=== PATIENT | male | born 1930 | race African-American/Black ===

== ENCOUNTER 2018-02-15 16:00 | Emergency (ER) | payer OTHER ==
[2018-02-15 16:30] VITALS: BP 137/112; PULSE 84; TEMP 98.3; BMI 27.7
--- NOTE | 2018-02-15 18:04 | PDOC ---
History of Present Illness <Nieves Nolan - Last Filed: 02/15/18 18:04> - General History Source: Patient Exam Limitations: No Limitations - History of Present Illness Initial Comments: 02/15/18 19:55 The patient is a 87 year old male, with a significant past medical history of HTN and BPH, who presents to the emergency department with, 2-3 weeks of a wound to the right side of his back. He notes his wound began to have purulent discharge approximately 2 days ago prompting him to call his PCP who advised him to report to the ED for drainage by Dr. Ledbetter. He denies any recent fevers, chills, headache or dizziness. He denies any recent nausea, vomit, diarrhea or constipation. He denies any recent chest pain or shortness of breath. He denies any recent dysuria, frequency, urgency or hematuria. Allergies: NKA Past surgical history: None reported. Social History: Nonsmoker. Denies EtOH use and recreational drug use. Primary Care Physician: Dr. Grullon <Jarvis Castillo - Last Filed: 02/15/18 20:04> - General Chief Complaint: Wound Stated Complaint: PCP SENT/SWELLING/MASS Time Seen by Provider: 02/15/18 18:04 Past History - Past Medical History Anemia: No Asthma: No Cancer: No Cardiac Disorders: No CVA: No COPD: No CHF: No Dementia: No Diabetes: No GI Disorders: No Disorders: Yes (INCONTINENT) HTN: Yes Hypercholesterolemia: No Liver Disease: No Seizures: No Thyroid Disease: No - Surgical History Abdominal Surgery: Yes (bowel obstruction,hernia) Orthopedic Surgery: Yes (Bilateral Knee REPLACEMENTS) - Suicide/Smoking/Psychosocial Hx Smoking Status: Yes Smoking History: Former smoker Have you smoked in the past 12 months: No Number of Cigarettes Smoked Daily: 5 Information on smoking cessation initiated: No 'Breaking Loose' booklet given: 07/21/14 Hx Alcohol Use: No Drug/Substance Use Hx: No Substance Use Type: Alcohol Hx Substance Use Treatment: No <Nieves Nolan - Last Filed: 02/15/18 18:04> <Jarvis Castillo - Last Filed: 02/15/18 20:04> - Past Medical History Allergies/Adverse Reactions: Allergies Allergy/AdvReac Type Severity Reaction Status Date / Time No Known Drug Allergies Allergy Verified 07/24/14 08:28 MESH Allergy Severe PAIN, FEVER Uncoded 07/24/14 08:28 Home Medications: Ambulatory Orders Tolterodine Tartrate [Detrol LA] 4 mg PO DAILY #0 cap.er.24h 11/04/12 Verapamil HCl [Verapamil Sr] 240 mg PO DAILY #0 cap24h.pel 11/04/12 oxyCODONE HCL [Roxicodone -] 5 mg PO Q6H #20 tablet 07/24/14 Sulfamethoxazole/Trimethoprim [Bactrim Ds -] 1 tab PO BID #14 tablet 02/15/18 Review of Systems - Review of Systems Able to Perform ROS?: Yes Comments:: 02/15/18 19:55 GENERAL/CONSTITUTIONAL: No fever or chills. No weakness. HEAD, EYES, EARS, NOSE AND THROAT: No change in vision. No ear pain or discharge. No sore throat. CARDIOVASCULAR: No chest pain or shortness of breath. RESPIRATORY: No cough, wheezing, or hemoptysis. GASTROINTESTINAL: No nausea, vomiting, diarrhea or constipation. GENITOURINARY: No dysuria, frequency, or change in urination. MUSCULOSKELETAL: No joint or muscle swelling or pain. No neck or back pain. +SKIN: Abscess to the right side of the lower/mid back. NEUROLOGIC: No headache, vertigo, loss of consciousness, or change in strength/ sensation. ENDOCRINE: No increased thirst. No abnormal weight change. HEMATOLOGIC/LYMPHATIC: No anemia, easy bleeding, or history of blood clots. ALLERGIC/IMMUNOLOGIC: No hives or skin allergy. All Other Systems: Reviewed and Negative <Jarvis Castillo - Last Filed: 02/15/18 20:04> *Physical Exam - Vital Signs Last Vital Signs Temp Pulse Resp BP Pulse Ox 98.3 F 84 16 137/112 H 96 02/15/18 16:25 02/15/18 16:25 02/15/18 16:25 02/15/18 16:25 02/15/18 16:25 <Nieves Nolan - Last Filed: 02/15/18 18:04> - Vital Signs Last Vital Signs Temp Pulse Resp BP Pulse Ox 98.3 F 84 16 137/112 H 96 02/15/18 16:25 02/15/18 16:25 02/15/18 16:25 02/15/18 16:25 02/15/18 16:25 <Jarvis Castillo - Last Filed: 02/15/18 20:04> Moderate Sedation - Procedure Monitoring Vital Signs: Procedure Monitoring Vital Signs Temperature 98.3 F 02/15/18 16:25 Pulse Rate 84 02/15/18 16:25 Respiratory Rate 16 02/15/18 16:25 Blood Pressure 137/112 H 02/15/18 16:25 O2 Sat by Pulse Oximetry (%) 96 02/15/18 16:25 <Nieves Nolan - Last Filed: 02/15/18 18:04> - Procedure Monitoring Vital Signs: Procedure Monitoring Vital Signs Temperature 98.3 F 02/15/18 16:25 Pulse Rate 84 02/15/18 16:25 Respiratory Rate 16 02/15/18 16:25 Blood Pressure 137/112 H 02/15/18 16:25 O2 Sat by Pulse Oximetry (%) 96 02/15/18 16:25 <Jarvis Castillo - Last Filed: 02/15/18 20:04> *DC/Admit/Observation/Transfer <Nieves Nolan - Last Filed: 02/15/18 18:04> - Attestations Scribe Attestion: 02/15/18 19:55 Documentation prepared by Jarvis Castillo, acting as chief medical physicist for Nieves Nolan MD. <Jarvis Castillo - Last Filed: 02/15/18 20:04> - Discharge Dispostion Condition at time of disposition: Stable - Prescriptions Prescriptions: Sulfamethoxazole/Trimethoprim [Bactrim Ds -] 1 tab PO BID #14 tablet - Referrals Referrals: Shay Grullon MD [Primary Care Provider] - - Patient Instructions - Post Discharge Activity
[2018-02-15] MEDS ORDERED: LIDOCAINE HCL 1%, 10 MG/ML (50 mL VIAL) INF ONE (18:13)
[2018-02-15] MEDS ORDERED: LIDOCAINE 1%/EPI 1:100000 (20 ML MULTI DOSE VIAL) INF ONE (18:32)
[2018-02-15] MEDS ORDERED: LIDOCAINE 1%/EPI 1:100000 (20 ML MULTI DOSE VIAL) ONE (18:39)
[2018-02-15] MEDS ORDERED: ACETAMINOPHEN WITH CODEINE 300MG/30MG TABLET PO ONE ×2 (19:57→20:01)
[2018-02-15] MEDS ORDERED: SULFAMETHOXAZOLE/TRIMETHOPRIM 800MG/160MG D.S. TABLET PO ONE (19:57)
--- NOTE | 2018-02-15 20:02 | PDOC ---
*Physical Exam - Vital Signs Last Vital Signs Temp Pulse Resp BP Pulse Ox 98.3 F 84 16 137/112 H 96 02/15/18 16:25 02/15/18 16:25 02/15/18 16:25 02/15/18 16:25 02/15/18 16:25 Medical Decision Making - Medical Decision Making 02/15/18 20:[address] Nolan. Patient is an 87 yo male w/ pmh HTN and BPH who presents for evaluation of 2-3 week right back wound/swelling. Patient evaluated by surgery who drained and sent wound culture. Suggested Bactrim BS BID for 1 week with tylenol 3 for pain control. Will comply with recommendations. No need for further workup at this time. Discharging to home for further outpatient follow-up. *DC/Admit/Observation/Transfer Diagnosis at time of Disposition: Abscess of lower back, Ruptured epidermal cyst, Back pain due to inflammatory process Hypertension Qualifiers: Hypertension type: essential hypertension Qualified Code(s): I10 - Essential ( primary) hypertension - Discharge Dispostion Disposition: HOME Condition at time of disposition: Improved - Prescriptions Prescriptions: Acetaminophen W/ Codeine #3 [Tylenol # 3 -] 1 tab PO TID PRN #15 tablet MDD 3 tabs PRN Reason: Pain Sulfamethoxazole/Trimethoprim [Bactrim Ds -] 1 tab PO BID #14 tablet - Referrals Referrals: Shay Grullon MD [Primary Care Provider] - Red Ledbetter MD [Staff Physician] - 02/17/18 (CALL for appointment ) - Patient Instructions Printed Discharge Instructions: DI for Incision and Drainage of a Skin Abscess Additional Instructions: Postoperative instructions: You had incision and drainage of a right lower back abscess on 02/15/[address] Red Ledbetter of [facility]. Activity/Wound Care: Resume your usual activities gradually. Do not remove dressing until seen in surgical clinic Thursday. You will need to start daily wound care on at home, and a visiting nurse may be arranged to come help you with that. The wound dressing should be removed , and the packing taken out and replaced after cleansing. If a nurse is present, they should do the first dressing change at home. After that, you may coordinate timing such that you may shower daily starting then with the dressing OFF and OUT. Soap and water is okay on the wound, but you may need slightly cooler water than usual to minimize pain. After your shower, just pat the wound area dry, and have the nurse or your son repack the wound with ribbon gauze (1" or 1/2" iodoform or plain packing), cover with gauze and secure with tape to keep it until the next day. No bath or swimming until skin incisions have healed. Pain/Meds: For pain, you may use and alternate [id number] Tylenol ( acetaminophen) 1-2 pills and/or Ibuprofen 200 mg (1-3 pills) every 6 hours each as needed; this means that you can take one OR the other at 3-hour intervals. If you are prescribed a Tylenol/narcotic combination for severe pain, use it instead of plain Tylenol as needed and switch back when your pain starts decreasing. Do not take more than 4000 mg of acetaminophen in a day. Take medications as prescribed or indicated on the labeling. You are also prescribed antibiotics for a week - Bactrim twice daily for seven days. Take all of the antibiotics, even if you are feeling much better. Follow-up: Call Dr. Ledbetter's office at [phone] to make your postop appointment (Thursday this , 02/17/18). Clinic is held in the [facility] on the first floor of [facility]. Call the office if you have: * increasing pain not responsive to pain medication * fever of 101F or higher * vomiting * unusual or increasing bleeding or drainage from wounds * increasing redness or swelling at wound sites Also, see your primary medical doctor, Dr. Grullon, next week again. - Post Discharge Activity
--- NOTE | 2018-02-15 20:10 | CONSULT ---
Consult Consult Specialty:: General Surgery Referred by:: Dr. Cristian Grullon/ER Reason for Consultation:: back abscess - History of Present Illness Chief Complaint: right lower back lump, swelling, pain, drainage History of Present Illness: 87yoM with HTN, incontinence, multiple surgical hx, no diabetes was seen in Dr. Grullon's office today with c/o right lower back lump for about a month or so, now larger, with increased pain, and drainage - has been red on his sheets and clothing. He denies associated symptoms, and only told his son about it today. He is seen in the ER, sent from PCP, for surgical evaluation and drainage. He is seen with his son, in ER, alert and cooperative. There is staining on his shirt and sweatshirt from the site, which is not dressed. He notes pain in the area, but has not taken anything specifically for it recently. - History Source History Provided By: Patient Limitations to Obtaining History: No Limitations - Past Medical History Cardio/Vascular: Yes: HTN Renal/: Yes: Other (incontinence) Musculoskeletal: Yes: Osteoarthritis Rheumatology: Yes: Rheumatoid Arthritis - Past Surgical History Past Surgical History: Yes: Colostomy (with reversal), Hernia Repair (abdominal) , Joint Replacement (knee) Additional Surgical History: surgery for bowel obstruction, colostomy and reversal - Alcohol/Substance Use Hx Alcohol Use: Yes (social/occasional) History of Substance Use: reports: None - Smoking History Smoking history: Current every day smoker Have you smoked in the past 12 months: Yes Aproximately how many cigarettes per day: 7 (1pk/3 days) - Social History Usual Living Arrangement: With Child Occupation: retired Home Medications - Allergies Allergies/Adverse Reactions: Allergies Allergy/AdvReac Type Severity Reaction Status Date / Time No Known Drug Allergies Allergy Verified 07/24/14 08:28 MESH Allergy Severe PAIN, FEVER Uncoded 07/24/14 08:28 - Home Medications Home Medications: Ambulatory Orders Tolterodine Tartrate [Detrol LA] 4 mg PO DAILY #0 cap.er.24h 11/04/12 Verapamil HCl [Verapamil Sr] 240 mg PO DAILY #0 cap24h.pel 11/04/12 oxyCODONE HCL [Roxicodone -] 5 mg PO Q6H #20 tablet 07/24/14 Acetaminophen W/ Codeine #3 [Tylenol # 3 -] 1 tab PO TID PRN #15 tablet MDD 3 tabs 02/15/18 Sulfamethoxazole/Trimethoprim [Bactrim Ds -] 1 tab PO BID #14 tablet 02/15/18 Family Disease History - Family Disease History Family History: Unremarkable (noncontributory) Review of Systems - Review of Systems Constitutional: denies: Chills, Fever Eyes: reports: Other (wears glasses). denies: Recent Change in Vision HENT: reports: Hearing Loss. denies: Difficult Swallowing, Throat Pain Neck: denies: Swollen Glands, Tenderness Cardiovascular: denies: Chest Pain, Palpitations Respiratory: denies: Cough, SOB Gastrointestinal: denies: Abdominal Pain, Nausea, Vomiting Genitourinary: reports: Incontinence. denies: Dysuria Musculoskeletal: reports: Back Pain (with hpi), Other (joint deformities ( arthritis)) Integumentary: reports: Lump (with hpi), Wound (with hpi) Neurological: reports: Unsteady Gait (walks with cane). denies: Dizziness, Headache Physical Exam Vital Signs: Vital Signs Temperature 98.3 F 02/15/18 16:25 Pulse Rate 84 02/15/18 16:25 Respiratory Rate 16 02/15/18 16:25 Blood Pressure 137/112 H 02/15/18 16:25 O2 Sat by Pulse Oximetry (%) 96 02/15/18 16:25 Constitutional: Yes: Well Nourished, No Distress, Calm Eyes: Yes: Conjunctiva Clear, EOM Intact, Other (glasses) HENT: Yes: Atraumatic, Normocephalic, Other (poor dentition) Neck: Yes: Supple, Trachea Midline Cardiovascular: Yes: Regular Rate and Rhythm Respiratory: Yes: Regular, CTA Bilaterally Gastrointestinal: Yes: Normal Bowel Sounds, Soft, Hernia (incisional, reducible) , Other (healed scars). No: Tenderness ...Rectal Exam: Yes: Deferred Renal/: No: CVA Tenderness - Left, CVA Tenderness - Right Musculoskeletal: Yes: Joint Stiffness. No: Joint Swelling Extremities: Yes: Deformity (hands with arthritic deformities). No: Cool, Cyanosis Edema: No Peripheral Pulses WNL: Yes Integumentary: Yes: Other (right lower back lump (see below) and smaller, mobile soft midline subcutaneous mass feels compatible with lipoma, nontender). No: Jaundice, Rash Wound/Incision: Yes: Open to air, Draining (purulence expressible), Other ( right lower back with 5-6cm diameter raised (~3cm), slightly firm, tender lump, with ulcerated center (yellow and pink), with purulence expressible, small punctum just to right of ulcerated area). No: Reddened (no sig local erythema) Neurological: Yes: Alert, Oriented Psychiatric: Yes: Alert, Oriented Problem List - Problems (1) Abscess of lower back Assessment/Plan: likely ruptured epidermal cyst - needs drainage Discussed with patient risks, benefits and alternatives of incision and drainage of back abscess, including but not limited to bleeding, infection; alternatives include antibiotics and no surgery - risks of this include progression of infection, need for more extensive procedure, sepsis, . Patient agreeable to procedure under local anesthesia in ER. See separate procedure note for details. I&D performed in ED wound packed with 1" iodoform - remaining supplies given to pt's son, who observed technique for packing pain meds to be given by ED Bactrim x 1 week, first dose now ok for diet dressing to be left alone until he sees me to f/u in surgical clinic Thursday, call for appt will need CM/SW to arrange VNS to start for daily wound care - packing changes with 1/2" iodoform or plain packing daily starting pt's son will be able to help on days nurse cannot be there, but could use education/reinforcement and someone to follow wound he will be able to shower with dressing off/out, once can be coordinated with VNS after first dressing change also should f/u with Dr. Grullon next week instructions in d/c plan Code(s): L02.212 - CUTANEOUS ABSCESS OF BACK [ANY PART, EXCEPT BUTTOCK] (2) Ruptured epidermal cyst Code(s): L72.0 - EPIDERMAL CYST (3) Back pain due to inflammatory process Code(s): M54.89 - OTHER DORSALGIA (4) Hypertension Code(s): I10 - ESSENTIAL (PRIMARY) HYPERTENSION Qualifiers: Hypertension type: essential hypertension Qualified Code(s): I10 - Essential (primary) hypertension
[2018-02-15] MEDS ORDERED: SULFAMETHOXAZOLE/TRIMETHOPRIM 800MG/160MG D.S. TABLET ONE (20:23)
[2018-02-15] MEDS ORDERED: ACETAMINOPHEN WITH CODEINE 300MG/30MG TABLET ONE (20:23)
--- NOTE | 2018-02-15 20:37 | PROC ---
Incision and Drainage Indication/Location: right lower back abscess Risks and Benefits Explained: Yes Consent on Chart: No (verbal consent obtained) Betadine cleansed: Yes Anesthesia: 1% Lidocaine w/ Epi (27ml) Blade Size: 10 Drainage: purulent and cheesy content, bloody Irrigated with Normal Saline: No (irrigated with local anesthetic) Iodinated Packin in Sterile Dressing Applied: Yes - Remarks Remarks: 20ml 1% lido + epi used to infiltrate around and under affected area ~2.5cm diameter disc of skin removed to include ulcerated area and punctum additional 7ml local infiltrated into skin edges with excision for pain culture taken upon initial access to pus ruptured cyst with cheesy content noted, as much of cyst wall as could be found was excised small bleeder in wound base cauterized with silver nitrate wound ~2cm deep at end of procedure, edges slightly undermined, R>L irrigated with local wiped out with gauze cavity packed with 1" iodoform ribbon covered with gauze and tape pt tolerated well son observed for packing technique
== END 2018-02-15 21:26 | disposition home or self-care (01) ==
LOC: JER 16:00
PROC: 0H96XZZ Drainage of Back Skin, External Approach (ICD-10-PCS; principal; 2018-02-15)
DX: L02.212 Cutaneous abscess of back [any part, except buttock and flank] (principal); L72.0 Epidermal cyst; M54.9 Dorsalgia, unspecified; I10 Essential (primary) hypertension
CPT/HCPCS: 87070; 87077; 87205; 99281-25

== ENCOUNTER 2018-10-12 09:31 | Inpatient (IN) | payer OTHER ==
--- NOTE | 2018-10-12 10:07 | PDOC ---
Attending Attestation - Resident Resident Name: Nohemi Swift - ED Attending Attestation I have performed the following: I have examined & evaluated the patient, The case was reviewed & discussed with the resident, I agree w/resident's findings & plan, Exceptions are as noted - HPI HPI: 10/12/18 09:59 88y M hx of htn, bph presents with complaint of leg waekness - states that the past few days, he has felt more unsteady than usual. He is usually able to ambulate on his own, but has felt a bit more unsteady than usual. Pt does have a hx of bph and chronic intermittent urinary incontinence (possibly overflow) Pt endorses some mild b/l knee pain. denies any fever/chills, cough, sob, dean, cp, dysuria, back pain, numnbess/tingling/weakness, diarrhea, melena, bpr. pt denies recent falls/trauma. pt denies any current pain PMD: Dr. Grullon - Physicial Exam PE: 10/12/18 10:23 GENERAL: The patient is awake, alert, and fully oriented, Nontoxic - in no acute distress. HEAD: Normocephalic, atraumatic. EYES: extraocular movements intact, sclera anicteric, conjunctiva clear. ENT: Normal voice, Moist mucous membranes. NECK: Normal range of motion, supple LUNGS: Breath sounds equal, clear to auscultation bilaterally. No wheezes, no rhonchi, no rales. HEART: Regular rate and rhythm, normal S1 and S2 without murmur, rub or gallop. ABDOMEN: Soft, nontender, No guarding, no rebound. No CVA tenderness EXTREMITIES: Normal range of motion, no edema. NEUROLOGICAL: No facial assymetry, Normal speech, strength 5/5 in upper/lower extremities at shoulder/elbow/wrist/hip/knee flex/ext PSYCH: Normal mood, normal affect. SKIN: Warm, Dry, normal turgor, lipoma on mid back/midline that is nonfluctuant , non erythemadous, nontender, non indurated - Medical Decision Making 10/12/18 10:25 general weakness - ddx - anemia, metabolic derangement, occut infection will ck ekg, cbc, cmp, trop, ua will reassess if neg, anticipate dc after abmulation 10/12/18 13:45 pts labs reviewed cr noted slightly elevated, possible prerenal pts trop noted at .12 - may be due to renal clearance. will recheck the pts trop low suspicionf or acs as pt denies any anginal equivalents 10/12/18 16:45 p;ts repeat trop was at .13 - will admit for further management and trend trops no cp currently Heart Score/ECG Review - ECG Impressions Comment:: 10/12/18 10:57 Twelve-lead EKG was performed and reviewed by me. There is normal sinus rhythm with a ragte of 78 1st degree av block PVCs present LAD LVH abnormal r wave pgoression
--- NOTE | 2018-10-12 10:10 | PDOC ---
History of Present Illness - General Chief Complaint: Pain Stated Complaint: SICK Time Seen by Provider: 10/12/18 09:39 - History of Present Illness Initial Comments: 10/12/18 10:13 88y/o M hx of HTN,BPH and bilateral knee replacements presenting with 2 days of sudden bilateral leg weakness. At baseline, he is able to walk around albeit slowly around his home and has some tremors. He has been unable to bear his weight and feels the weakness primarily in his knees. Though able to walk, patient spends a lot of time bed bound on a daily basis.He denies any pain, numbness, falls, trauma, fevers, chills, sick contacts. Past History - Past Medical History Allergies/Adverse Reactions: Allergies Allergy/AdvReac Type Severity Reaction Status Date / Time No Known Drug Allergies Allergy Verified 10/12/18 11:06 MESH Allergy Severe PAIN, FEVER Uncoded 10/12/18 11:06 Home Medications: Ambulatory Orders Tolterodine Tartrate [Detrol LA] 4 mg PO DAILY #0 cap.er.24h 11/04/12 Verapamil HCl [Verapamil Sr] 240 mg PO DAILY #0 cap24h.pel 11/04/12 Anemia: No Asthma: No Cancer: No Cardiac Disorders: No CVA: No COPD: No CHF: No Dementia: No Diabetes: No GI Disorders: No Disorders: Yes (INCONTINENT) HTN: Yes Hypercholesterolemia: No Liver Disease: No Seizures: No Thyroid Disease: No - Surgical History Abdominal Surgery: Yes (bowel obstruction,hernia) Orthopedic Surgery: Yes (Bilateral Knee REPLACEMENTS) - Suicide/Smoking/Psychosocial Hx Smoking Status: Yes Smoking History: Current every day smoker Have you smoked in the past 12 months: Yes Number of Cigarettes Smoked Daily: 4 Information on smoking cessation initiated: No 'Breaking Loose' booklet given: 07/21/14 Hx Alcohol Use: No Drug/Substance Use Hx: No Substance Use Type: Alcohol Hx Substance Use Treatment: No Review of Systems - Review of Systems Constitutional: No: Chills, Fever HEENTM: No: Blurred Vision, Ear Pain Respiratory: No: Cough, Shortness of Breath Cardiac (ROS): No: Chest Pain ABD/GI: No: Abd. Pain w/ defecation : Yes: Incontinence. No: Burning, Dysuria Musculoskeletal: No: Back Pain, Joint Pain Integumentary: No: Bruising, Change in Color Neurological: No: Headache, Numbness *Physical Exam - Vital Signs Last Vital Signs Temp Pulse Resp BP Pulse Ox 99.1 F 79 18 155/88 96 10/12/18 09:34 10/12/18 09:34 10/12/18 09:34 10/12/18 09:34 10/12/18 09:34 - Physical Exam General Appearance: Yes: Appropriately Dressed. No: Apparent Distress HEENT: positive: Normal Voice Neck: positive: Supple. negative: Decreased range of motion Respiratory/Chest: positive: Lungs Clear, Normal Breath Sounds. negative: Chest Tender, Respiratory Distress Cardiovascular: positive: Regular Rhythm, Regular Rate, S1, S2. negative: Edema , JVD Vascular Pulses: Dorsalis-Pedis (R): 2+, Doralis-Pedis (L): 2+ Gastrointestinal/Abdominal: positive: Normal Bowel Sounds, Soft, Protuberent. negative: Guarding, Rebound Musculoskeletal: positive: Normal Inspection, Other (lipoma located in the midback). negative: CVA Tenderness Extremity: positive: Normal Capillary Refill, Normal Inspection, Normal Range of Motion, Other (5/5 strength bilateral lower extremities. full range of motion. scar on both knees from surgery). negative: Tender Integumentary: positive: Normal Color, Dry, Warm Neurologic: positive: Fully Oriented, Alert, Normal Mood/Affect, Normal Response , Motor Strength 5/5 ED Treatment Course - LABORATORY CBC & Chemistry Diagram: 10/14/18 05:24 10/14/18 05:24 Medical Decision Making - Medical Decision Making 10/12/18 10:56 88y/o M hx of HTN,BPH and bilateral knee replacements presenting with 2 days of sudden bilateral leg weakness. Labs/Imaging/Meds cbc,cmp,ua,ekg, troponin Ekg: Sinus rhythm with first degree AV block, possible left atrial enlargement, ,left axis deviation,LVH, T wave abnormality, inferior infarct, Bladder scan: 45 cc of urine. white count 9.8 BUN/Cr 24.4/1.7 10/12/18 12:16 Pt.unable to pee at this time. Is resisting the idea of getting a straight cath for urine collection. Benefits of getting testing have been explained to the patient. Pt given more water to drink and will attempt collection again. 09/03/19 15:06 Pt was able to urinate Urine + for UTI. given one dose of cephalexin PO 500mg Trop elevated 0.12 and 0.13 3 hrs later. Pt will be admitted for observation Microblog sent for admission *DC/Admit/Observation/Transfer Diagnosis at time of Disposition: Elevated troponin, Leg weakness, bilateral - Referrals - Patient Instructions - Post Discharge Activity
[2018-10-12 11:16] LABS: BASO % 0.3 % (0-2.0); EOS % 0.1 % (0-4.5); HEMOGLOBIN 14.1 GM/dL (11.7-16.9); LYMPH % 3.2 % (8-40); MCH 30.5 pg (25.7-33.7); MCHC 34.3 g/dl (32.0-35.9); MEAN CELL VOLUME 89.1 fl (80-96); MEAN PLT VOLUME 9.7 fl (7.5-11.1); MONO % 9.2 % (3.8-10.2); NEUT % 87.2 % (42.8-82.8); PLATELET COUNT 151 K/MM3 (134-434); RDW 13.3 % (11.9-15.9); WHITE BLOOD COUNT 9.8 K/mm3 (4.0-10.0)
[2018-10-12 11:48] LABS: BILIRUBIN,TOTAL 2.2 mg/dL (0.2-1); BLOOD UREA NITROGEN 24.4 mg/dL (7-18); CALCIUM 8.6 mg/dL (8.5-10.1); CREATININE 1.7 mg/dL (0.55-1.3); POTASSIUM 3.4 mmol/L (3.5-5.1); TOT PROT 6.5 g/dl (6.4-8.2)
--- NOTE | 2018-10-12 12:41 | EKG ---
Test Reason : Blood Pressure : / mmHG Vent. 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
[2018-10-12 13:06] LABS: EPI CELLS 1.6 /HPF (0-5/HPF); HYALINE CASTS 33 /lpf (0-8); URINE APPEARANCE CLOUDY; URINE BACTERIA 101.6 /hpf (NEGATIVE); URINE BILIRUBIN 1+ (NEGATIVE); URINE COLOR DK YELLOW; URINE GLUCOSE (UA) NEGATIVE (NEGATIVE); URINE KETONE NEGATIVE (NEGATIVE); URINE LEUK ESTERASE 1+ (NEGATIVE); URINE NITRITE POSITIVE (NEGATIVE); URINE PROTEIN 2+ (NEGATIVE); URINE RBC 1 /hpf (0-4); URINE WBC 28 /hpf (0-5)
[2018-10-12] MEDS ORDERED: CEPHALEXIN MONOHYDRATE 500 MG CAPSULE (UD) PO ONE (13:12)
[2018-10-12] MEDS ORDERED: CEPHALEXIN MONOHYDRATE 500 MG CAPSULE (UD) ONE (13:21)
--- NOTE | 2018-10-12 17:47 | HP ---
Admitting History and Physical - Admission Chief Complaint: increased weakness History of Present Illness: Patient is an 88 year old male with a significant past medical history of hypertension, BPH, rheumatoid arthritis, hypertension and bilateral knee replacements. He presents to the ED with c/o of two days of increases weakness , lethargy and with inability to suddenly ambulate secondary to increased weakness. At baseline, he is able to walk around slowly around his home and has some tremors. He has been unable to bear his weight and feels the weakness primarily in his knees.He denies any pain, numbness, falls, trauma, fevers, chills, sick contacts. In the ED he was noted to have hypertensive urgency, JEANNIE, elevated troponins and also found to have uti. He is being admitted for cardiac workup. History Source: Patient, Family Member Limitations to Obtaining History: Intoxication, Physical Impairment, Poor Historian - Past Medical History Cardiovascular: Yes: HTN Pulmonary: Yes: Other Renal/: Yes: Other (incontinence) Musculoskeletal: Yes: Osteoarthritis Rheumatology: Yes: Rheumatoid Arthritis - Past Surgical History Past Surgical History: Yes: Colostomy (with reversal), Hernia Repair (abdominal) , Joint Replacement (knee) - Smoking History Smoking history: Current every day smoker Have you smoked in the past 12 months: Yes Aproximately how many cigarettes per day: 4 - Alcohol/Substance Use Hx Alcohol Use: No History of Substance Use: reports: None - Social History Usual Living Arrangement: Yes: With Spouse ADL: Family Assistance Occupation: retired History of Recent Travel: No Home Medications - Allergies Allergies/Adverse Reactions: Allergies Allergy/AdvReac Type Severity Reaction Status Date / Time No Known Drug Allergies Allergy Verified 10/12/18 11:06 MESH Allergy Severe PAIN, FEVER Uncoded 10/12/18 11:06 - Home Medications Home Medications: Ambulatory Orders Tolterodine Tartrate [Detrol LA] 4 mg PO DAILY #0 cap.er.24h 11/04/12 Verapamil HCl [Verapamil Sr] 240 mg PO DAILY #0 cap24h.pel 11/04/12 Family Disease History - Family Disease History Family History: Unable to Obtain Review of Systems - Review of Systems Constitutional: reports: No Symptoms, Lethargy, Loss of Appetite, Malaise, Weakness Eyes: reports: Other HENT: reports: No Symptoms Neck: reports: No Symptoms Cardiovascular: reports: Other Respiratory: reports: Exercise Intolerance Gastrointestinal: reports: No Symptoms Musculoskeletal: reports: Decreased ROM, Muscle Weakness Integumentary: reports: No Symptoms Neurological: reports: No Symptoms Endocrine: reports: No Symptoms Hematology/Lymphatic: reports: No Symptoms Psychiatric: reports: No Symptoms Physical Examination Vital Signs: Vital Signs Temperature 99.0 F 10/12/18 15:15 Pulse Rate 70 10/12/18 15:15 Respiratory Rate 18 10/12/18 09:34 Blood Pressure 189/95 H 10/12/18 15:15 O2 Sat by Pulse Oximetry (%) 97 10/12/18 15:15 Constitutional: Yes: Well Nourished, Calm Eyes: Yes: WNL HENT: Yes: Atraumatic Neck: Yes: WNL Cardiovascular: Yes: Regular Rate and Rhythm Respiratory: Yes: CTA Bilaterally Gastrointestinal: Yes: WNL ...Rectal Exam: Yes: Deferred Renal/: Yes: WNL Peripheral Pulses WNL: No Integumentary: Yes: WNL Wound/Incision: Yes: Clean/Dry Neurological: Yes: Alert, Oriented ...Motor Strength: WNL Psychiatric: Yes: Alert, Oriented Labs: CBC, BMP 10/12/18 11:05 10/12/18 11:05 Imaging - Results Chest X-ray: Report Reviewed Problem List - Problems (1) Weakness Assessment/Plan: will initiate physical therapy if weakness persists may need further imaging Code(s): R53.1 - WEAKNESS (2) Elevated troponin Assessment/Plan: rule out acs trops elevated, ekg shows nsr 78, 1st degree av block, pvcs lad, lvh and abnormal wave progression given lovenox 90mg x 1 at 7pm today, will await cardiology recommendations for anticoagulation trend troponins echo in a.m. Code(s): R74.8 - ABNORMAL LEVELS OF OTHER SERUM ENZYMES (3) Hypertensive urgency Assessment/Plan: on verapramil 240mg. did not take his cardiac medications today. unclear if patient is complaint with cardiac medications for echo. monitor bp q 4, may need further uptitration of medications will check lipid panel and a1c o further assess risk factors Code(s): I16.0 - HYPERTENSIVE URGENCY (4) ACS (acute coronary syndrome) Code(s): I24.9 - ACUTE ISCHEMIC HEART DISEASE, UNSPECIFIED (5) Urinary tract infection Assessment/Plan: given keflex in the Ed. will start on ceftriaxone, pending urine culture Code(s): N39.0 - URINARY TRACT INFECTION, SITE NOT SPECIFIED (6) Prophylactic measure Assessment/Plan: fen gentle hydration monitor electrolytes low salt diet prophy [facility] [place] Code(s): Z29.9 - ENCOUNTER FOR PROPHYLACTIC MEASURES, UNSPECIFIED Visit type - Emergency Visit Emergency Visit: Yes ED Registration Date: 10/12/18 Care time: The patient presented to the Emergency Department on the above date and was hospitalized for further evaluation of their emergent condition. - New Patient This patient is new to me today: Yes Date on this admission: 10/13/18 - Critical Care Critical Care patient: No
[2018-10-12] MEDS ORDERED: VERAPAMIL HCL 240 MG E.R. TABLET PO ONE (18:43)
[2018-10-12] MEDS ORDERED: VERAPAMIL HCL 120 MG TABLET PO STA (18:43)
[2018-10-12] MEDS ORDERED: ACETAMINOPHEN 325 MG TABLET (FP) PO PRN (18:44)
[2018-10-12] MEDS ORDERED: ENOXAPARIN NA (PORCINE) 100 MG/1 ML DISP.SYRIN SQ ONE ×2 (19:39→20:08)
[2018-10-12] MEDS ORDERED: ASPIRIN COATED 81 MG TABLET.EC ONE (20:08)
[2018-10-12] MEDS: ASPIRIN COATED 81 MG TABLET.EC PO SCH (20:19)
[2018-10-12] MEDS: SODIUM CHLORIDE 1,000 ML IV SCH (20:37)
[2018-10-12] MEDS ORDERED: ACETAMINOPHEN 325 MG TABLET (FP) ONE (21:57)
[2018-10-13 00:27] VITALS: BMI 27.1
[2018-10-13 07:53] LABS: BASO % 0.7 % (0-2.0); EOS % 1.5 % (0-4.5); HEMOGLOBIN 13.5 GM/dL (11.7-16.9); LYMPH % 6.4 % (8-40); MCH 30.7 pg (25.7-33.7); MCHC 34.8 g/dl (32.0-35.9); MEAN CELL VOLUME 88.2 fl (80-96); MEAN PLT VOLUME 10.4 fl (7.5-11.1); NEUT % 80.4 % (42.8-82.8); PLATELET COUNT 154 K/MM3 (134-434); RBC 4.42 M/mm3 (4.00-5.60); RDW 13.1 % (11.9-15.9); WHITE BLOOD COUNT 6.8 K/mm3 (4.0-10.0)
[2018-10-13 08:25] LABS: ALBUMIN 2.8 g/dl (3.4-5.0); BILIRUBIN,TOTAL 1.6 mg/dL (0.2-1); BLOOD UREA NITROGEN 26.1 mg/dL (7-18); CREATININE 1.4 mg/dL (0.55-1.3); MAGNESIUM 2.4 mg/dL (1.8-2.4); TOT PROT 6.1 g/dl (6.4-8.2)
[2018-10-13 08:26] LABS: CHOLESTEROL 84 mg/dL (50-200); HDL CHOLESTEROL 22 mg/dL (40-60); TRIGLYCERIDES 133 mg/dL (0-150)
[2018-10-13] MEDS ORDERED: ENOXAPARIN NA (PORCINE) 100 MG/1 ML DISP.SYRIN SQ ONE (09:00)
[2018-10-13] MEDS ORDERED: PNEUMOC 13-VAL CONJ-DIP CRM/PF 0.5 ML DISP.SYRIN IM ONE (09:00)
[2018-10-13] MEDS ORDERED: POTASSIUM CHLORIDE ORAL LIQUID 20 MEQ/15 ML PO ONE (09:00)
[2018-10-13] MEDS ORDERED: PT OWN MED DRAWER 7, Y5N ONE (09:24)
[2018-10-13] MEDS ORDERED: DEXTROSE 5%-WATER - 50 ML IVPB ONE (09:24)
[2018-10-13] MEDS ORDERED: cefTRIAXone SODIUM 1 GM VIAL ONE (09:24)
[2018-10-13] MEDS: metoPROLOL SUCCINATE 25 MG TAB.SR.24H (FP) PO SCH ×2 (10:07→22:11)
[2018-10-13] MEDS: CEFTRIAXONE 1 GM in DEXTROSE 5%-WATER - 50 ML IVPB SCH (10:07)
[2018-10-13] MEDS: ASPIRIN COATED 81 MG TABLET.EC PO SCH (10:07)
--- NOTE | 2018-10-13 11:04 | CON.CARD ---
Consult Consult Specialty:: Cardiology Referred by:: Medicine Reason for Consultation:: weakness, elevated trop - History of Present Illness Chief Complaint: weakness History of Present Illness: 88M ho HTN, BPH, RA p/w weakness. [place] suddenly it was hard to walk, his knees gave out. Also felt tremors. No chest pain, palps, dizziness, syncope, edema, orthopnea. In the ER found to have UTI, on abx. - Past Medical History Cardio/Vascular: Yes: HTN Pulmonary: Yes: Other Renal/: Yes: Other (incontinence) Musculoskeletal: Yes: Osteoarthritis Rheumatology: Yes: Rheumatoid Arthritis - Past Surgical History Past Surgical History: Yes: Colostomy (with reversal), Hernia Repair (abdominal) , Joint Replacement (knee) - Alcohol/Substance Use Hx Alcohol Use: No History of Substance Use: reports: None - Smoking History Smoking history: Current every day smoker Have you smoked in the past 12 months: Yes Aproximately how many cigarettes per day: 4 - Social History Usual Living Arrangement: With Child ADL: Family Assistance Occupation: retired History of Recent Travel: No Home Medications - Allergies Allergies/Adverse Reactions: Allergies Allergy/AdvReac Type Severity Reaction Status Date / Time No Known Drug Allergies Allergy Verified 10/12/18 11:06 MESH Allergy Severe PAIN, FEVER Uncoded 10/12/18 11:06 - Home Medications Home Medications: Ambulatory Orders Tolterodine Tartrate [Detrol LA] 4 mg PO DAILY #0 cap.er.24h 11/04/12 Verapamil HCl [Verapamil Sr] 240 mg PO DAILY #0 cap24h.pel 11/04/12 Family Disease History - Family Disease History Family History: Unremarkable Review of Systems - Review of Systems Constitutional: reports: No Symptoms Eyes: reports: No Symptoms HENT: reports: No Symptoms Neck: reports: No Symptoms Cardiovascular: reports: No Symptoms Respiratory: reports: No Symptoms Gastrointestinal: reports: No Symptoms Genitourinary: reports: No Symptoms Musculoskeletal: reports: No Symptoms Integumentary: reports: No Symptoms Neurological: reports: No Symptoms Endocrine: reports: No Symptoms Hematology/Lymphatic: reports: No Symptoms Psychiatric: reports: No Symptoms Vital Signs: Vital Signs Temperature 98.5 F 10/13/18 08:17 Pulse Rate 80 10/13/18 08:17 Respiratory Rate 20 10/13/18 08:17 Blood Pressure 158/82 10/13/18 08:17 O2 Sat by Pulse Oximetry (%) 97 10/13/18 08:17 Constitutional: Yes: No Distress, Calm Eyes: Yes: Conjunctiva Clear, EOM Intact HENT: Yes: Atraumatic, Normocephalic Neck: Yes: Supple, Trachea Midline Respiratory: Yes: Regular, CTA Bilaterally Gastrointestinal: Yes: Normal Bowel Sounds, Soft Cardiovascular: Yes: Regular Rate and Rhythm JVD: No Carotid Bruit: No PMI: Non-Displaced Heart Sounds: Yes: S1, S2 Extremities: No: Cold Edema: No Integumentary: No: Jaundice Neurological: Yes: Alert, Oriented Psychiatric: No: Agitated - Other Data Labs, Other Data: CBC, BMP 10/13/18 06:05 10/13/18 06:05 Troponin, BNP 10/12/18 10/12/18 10/13/18 11:05 14:12 06:05 Troponin I 0.12 H 0.13 H 0.10 H Troponin, BNP 10/12/18 10/12/18 10/13/18 11:05 14:12 06:05 Troponin I 0.12 H 0.13 H 0.10 H Assessment/Plan EKG: sinus, first degree AV block, old inferior infarct, lateral TWI similar to prior tele: sinus elevated trop - flat trend, indeterminate range. EKG similar to prior - no chest pain, unlikely ACS, defer anticoagulation - likely demand in setting of UTI - echo pending UTI, weakness - weakness likely in setting of UTI - on abx per primary HTN - unclear if taking home meds, restarted - monitor BP, may need additional agent
[2018-10-13] MEDS: VERAPAMIL HCL 120 MG CAP SUSTAINED RELEASE PO SCH (11:18)
[2018-10-13] MEDS: TOLTERODINE TARTRATE LA 4 MG CAP.SR.24H (FP) PO SCH (11:18)
--- NOTE | 2018-10-13 11:20 | ECHO ---
Name: CLEVE FERNANDEZ Exam:Adult Echocardiogram Study Date: 10/13/2018 10:06 AM Age: 88 yrs Reason For Study: ELEVATED TROPONIN Height: 67 in Weight: 192 lb BSA: 2.0 m2 MMode/2D Measurements & Calculations IVSd: 1.1 cm Ao root diam: 3.9 cm LVIDd: 6.2 cm LA dimension: 4.5 cm LVIDs: 4.8 cm LVPWd: 1.1 cm EDV(Teich): 190.9 ml LVOT diam: 2.1 cm ESV(Teich): 106.6 ml LAV (MOD-bp): 98.0 ml Doppler Measurements & Calculations MV E max ole: 36.0 cm/sec Ao V2 max: 217.2 cm/sec MV A max ole: 118.5 cm/sec Ao max P.9 mmHg MV E/A: 0.30 Ao V2 mean: 152.7 cm/sec MV dec time: 0.17 sec Ao mean P.6 mmHg Ao V2 VTI: 36.0 cm KIMBERLY(I,D): 1.6 cm2 AI P1/2t: 364.7 msec KIMBERLY(V,D): 1.7 cm2 AI max ole: 381.1 cm/sec LV V1 max P.3 mmHg AI max P.5 mmHg LV V1 mean P.1 mmHg AI dec slope: 306.1 cm/sec2 LV V1 max: 103.7 cm/sec LV V1 mean: 64.5 cm/sec LV V1 VTI: 16.4 cm MR max ole: 576.9 cm/sec SV(LVOT): 58.3 ml MR max P.4 mmHg TR max ole: 190.9 cm/sec PA V2 max: 86.9 cm/sec TR max P.7 mmHg PA max P.0 mmHg PI end-d ole: 101.3 cm/sec Med Peak E' Ole: 2.5 cm/sec Med E/e': 14.2 Lat Peak E' Ole: 3.0 cm/sec Lat E/e': 11.9 Procedure A two-dimensional transthoracic echocardiogram with color flow and Doppler was performed. Left Ventricle The left ventricle is mildly dilated. The left ventricle is not well visualized. Left ventricular sys tolic function is mildly reduced. E/A reversal consistent with but not diagnostic of poor LV compliance. Re gional wall motion abnormalities cannot be excluded due to limited visualization. There is mild global hypok inesis of the left ventricle. Right Ventricle The right ventricle is not well visualized. Atria The left atrium is moderately dilated. The right atrium is moderately dilated. Mitral Valve There is mild to moderate mitral valve thickening. There is no mitral valve stenosis. There is modera te mitral regurgitation. Tricuspid Valve There is mild tricuspid valve thickening. There is no tricuspid stenosis. There is mild tricuspid regurgitation. Right ventricular systolic pressure is normal. Aortic Valve There is moderate aortic valve thickening. There is moderate aortic sclerosis.;. Mild valvular aortic stenosis. Moderate aortic regurgitation. Pulmonic Valve The pulmonic valve is not well visualized. There is no pulmonic valvular stenosis. Mild pulmonic valv ular regurgitation. Great Vessels Borderline aortic root dilatation. Pericardium/Pleura There is no pericardial effusion. Interpretation Summary The left ventricle is mildly dilated. Moderate aortic regurgitation. The left atrium is moderately dilated. The right atrium is moderately dilated. There is moderate mitral regurgitation. There is mild tricuspid regurgitation. Right ventricular systolic pressure is normal. There is moderate aortic valve thickening. There is moderate aortic sclerosis.; Mild valvular aortic stenosis. E/A reversal consistent with but not diagnostic of poor LV compliance The left ventricle is not well visualized. Regional wall motion abnormalities cannot be excluded due to limited visualization. Left ventricular systolic function is mildly reduced. There is mild global hypokinesis of the left ventricle. Borderline aortic root dilatation. MD Yan Guzman 10/13/2018 11:20 AM
--- NOTE | 2018-10-13 12:58 | PN ---
Progress Note, Physician History of Present Illness: Patient is an 88 year old male with a significant past medical history of hypertension, BPH, rheumatoid arthritis, hypertension and bilateral knee replacements. He presents to the ED with c/o of two days of increases weakness , lethargy and with inability to suddenly ambulate secondary to increased weakness. At baseline, he is able to walk around slowly around his home and has some tremors. He has been unable to bear his weight and feels the weakness primarily in his knees.He denies any pain, numbness, falls, trauma, fevers, chills, sick contacts. In the ED he was noted to have hypertensive urgency, JEANNIE, elevated troponins and also found to have uti. He is being admitted for cardiac workup. - Current Medication List Current Medications: Active Medications Acetaminophen (Tylenol -) 650 mg PO Q6H PRN PRN Reason: FEVER Last Admin: 10/12/18 21:56 Dose: 650 mg Aspirin (Ecotrin -) 81 mg PO DAILY [facility] Last Admin: 10/13/18 10:07 Dose: 81 mg Sodium Chloride (Normal Saline -) 1,000 mls @ 75 mls/hr IV ASDIR [facility] Last Admin: 10/12/18 20:37 Dose: 75 mls/hr Ceftriaxone Sodium 1 gm/ (Dextrose) 50 mls @ 100 mls/hr IVPB DAILY [facility]; Protocol Last Admin: 10/13/18 10:07 Dose: 100 mls/hr Metoprolol Succinate (Toprol Xl -) 25 mg PO BID [facility] Last Admin: 10/13/18 10:07 Dose: 25 mg Tolterodine Tartrate (Detrol La -) 4 mg PO DAILY [facility] Last Admin: 10/13/18 11:18 Dose: 4 mg Verapamil HCl (Verelan Sr Capsule) 240 mg PO DAILY [facility] Last Admin: 10/13/18 11:18 Dose: 240 mg - Objective Vital Signs: Vital Signs Temperature 98.5 F 10/13/18 08:17 Pulse Rate 80 10/13/18 08:17 Respiratory Rate 20 10/13/18 08:17 Blood Pressure 158/82 10/13/18 08:17 O2 Sat by Pulse Oximetry (%) 97 10/13/18 08:17 Constitutional: Yes: Well Nourished, No Distress, Calm HENT: Yes: Atraumatic Neck: Yes: Supple Cardiovascular: Yes: Regular Rate and Rhythm Respiratory: Yes: Regular, Diminished Gastrointestinal: Yes: Abdomen, Obese Edema: No Labs: CBC, BMP 10/13/18 06:05 10/13/18 06:05 Problem List - Problems (1) Weakness Assessment/Plan: will initiate physical therapy if weakness persists may need further imaging Code(s): R53.1 - WEAKNESS (2) Elevated troponin Assessment/Plan: trops elevated, ekg shows nsr 78, 1st degree av block, pvcs lad, lvh and abnormal wave progression echo pending per cardiology, not likely ACS no need to further anticoagulate with lovenox Code(s): R74.8 - ABNORMAL LEVELS OF OTHER SERUM ENZYMES (3) Hypertensive urgency Assessment/Plan: on verapramil 240mg. unclear if patient is complaint with cardiac medications. add metoprolol bid. lipid panel reviewed Hmga1c, not diabetic. Code(s): I16.0 - HYPERTENSIVE URGENCY (4) ACS (acute coronary syndrome) Code(s): I24.9 - ACUTE ISCHEMIC HEART DISEASE, UNSPECIFIED (5) Urinary tract infection Assessment/Plan: given keflex in the Ed. will start on ceftriaxone, pending urine culture Code(s): N39.0 - URINARY TRACT INFECTION, SITE NOT SPECIFIED (6) Prophylactic measure Assessment/Plan: fen gentle hydration monitor electrolytes low salt diet prophy SCDs Code(s): Z29.9 - ENCOUNTER FOR PROPHYLACTIC MEASURES, UNSPECIFIED Visit type - Emergency Visit Emergency Visit: Yes ED Registration Date: 10/12/18 Care time: The patient presented to the Emergency Department on the above date and was hospitalized for further evaluation of their emergent condition. - New Patient This patient is new to me today: No - Critical Care Critical Care patient: No - Discharge Referral Referred to [facility] Med P.C.: No
--- NOTE | 2018-10-13 18:06 | CON.GU ---
Consult Consult Specialty:: Urology Referred by:: Med service Reason for Consultation:: 88 yo male w hx elevated PSA exact level unknown. Pt w frequency urgency nocturia and slow folw - History Source History Provided By: Patient, Medical Record - Past Medical History Cardio/Vascular: Yes: HTN Pulmonary: Yes: Other Renal/: Yes: Other (incontinence) Musculoskeletal: Yes: Osteoarthritis Rheumatology: Yes: Rheumatoid Arthritis - Past Surgical History Past Surgical History: Yes: Colostomy (with reversal), Hernia Repair (abdominal) , Joint Replacement (knee) - Alcohol/Substance Use Hx Alcohol Use: No History of Substance Use: reports: None - Smoking History Smoking history: Current every day smoker Have you smoked in the past 12 months: Yes Aproximately how many cigarettes per day: 4 - Social History Usual Living Arrangement: With Child ADL: Family Assistance Occupation: retired History of Recent Travel: No Home Medications - Allergies Allergies/Adverse Reactions: Allergies Allergy/AdvReac Type Severity Reaction Status Date / Time No Known Drug Allergies Allergy Verified 10/12/18 11:06 MESH Allergy Severe PAIN, FEVER Uncoded 10/12/18 11:06 - Home Medications Home Medications: Ambulatory Orders Tolterodine Tartrate [Detrol LA] 4 mg PO DAILY #0 cap.er.24h 11/04/12 Verapamil HCl [Verapamil Sr] 240 mg PO DAILY #0 cap24h.pel 11/04/12 Review of Systems - Review of Systems Genitourinary: reports: Frequency, Urgency Physical Exam- Vital Signs: Vital Signs Temperature 98.9 F 10/13/18 17:56 Pulse Rate 75 10/13/18 17:56 Respiratory Rate 20 10/13/18 08:17 Blood Pressure 162/84 10/13/18 17:56 O2 Sat by Pulse Oximetry (%) 97 10/13/18 08:17 Neck: Yes: WNL Cardiovascular: Yes: Regular Rate and Rhythm Respiratory: Yes: WNL Gastrointestinal: Yes: Normal Bowel Sounds Renal/: Yes: WNL Kidneys: Yes: WNL Pelvis: Yes: WNL Labs: CBC, BMP 10/13/18 06:05 10/13/18 06:05 Problem List - Problems (1) BPH loc w urin obs/LUTS Assessment/Plan: 88 yo male w severe symptoms of BPH Also hx elevated PSA w obtain and likely repeat value Will address voiding symptoms as opd Follow 2 weeks Code(s): N40.1 - BENIGN PROSTATIC HYPERPLASIA WITH LOWER URINARY TRACT SYMP (2) BPH loc w urin obs/LUTS Code(s): N40.1 - BENIGN PROSTATIC HYPERPLASIA WITH LOWER URINARY TRACT SYMP
[2018-10-13] MEDS: SODIUM CHLORIDE 1,000 ML IV SCH (22:11)
[2018-10-13] MEDS: HEPARIN NA (PORCINE) 5,000 UNITS/ML 1ML VIAL SQ SCH (22:12)
[2018-10-14 07:17] LABS: BASO % 0.9 % (0-2.0); EOS % 4.8 % (0-4.5); HEMATOCRIT 37.8 % (35.4-49); HEMOGLOBIN 12.9 GM/dL (11.7-16.9); LYMPH % 14.6 % (8-40); MCH 30.3 pg (25.7-33.7); MEAN CELL VOLUME 89.2 fl (80-96); MEAN PLT VOLUME 9.9 fl (7.5-11.1); MONO % 14.5 % (3.8-10.2); NEUT % 65.2 % (42.8-82.8); PLATELET COUNT 154 K/MM3 (134-434); RBC 4.24 M/mm3 (4.00-5.60); RDW 13.2 % (11.9-15.9); WHITE BLOOD COUNT 5.7 K/mm3 (4.0-10.0)
[2018-10-14 08:00] LABS: ALBUMIN 2.5 g/dl (3.4-5.0); BILIRUBIN,TOTAL 1.1 mg/dL (0.2-1); BLOOD UREA NITROGEN 19.8 mg/dL (7-18); CALCIUM 7.9 mg/dL (8.5-10.1); CREATININE 1.1 mg/dL (0.55-1.3); MAGNESIUM 2.2 mg/dL (1.8-2.4); POTASSIUM 3.4 mmol/L (3.5-5.1); TOT PROT 5.7 g/dl (6.4-8.2)
[2018-10-14] MEDS ORDERED: PT OWN MED DRAWER 7, Y5N ONE (08:32)
[2018-10-14] MEDS ORDERED: cefTRIAXone SODIUM 1 GM VIAL ONE (08:32)
[2018-10-14] MEDS ORDERED: DEXTROSE 5%-WATER - 50 ML IVPB ONE (08:33)
[2018-10-14] MEDS ORDERED: POTASSIUM CHLORIDE TABS 20 MEQ TABLET.ER (FP) PO ONE (08:45)
[2018-10-14] MEDS: metoPROLOL SUCCINATE 25 MG TAB.SR.24H (FP) PO SCH ×3 (08:46→21:36)
[2018-10-14] MEDS: VERAPAMIL HCL 120 MG CAP SUSTAINED RELEASE PO SCH ×2 (08:47→09:43)
[2018-10-14] MEDS: CEFTRIAXONE 1 GM in DEXTROSE 5%-WATER - 50 ML IVPB SCH (09:38)
[2018-10-14] MEDS: HEPARIN NA (PORCINE) 5,000 UNITS/ML 1ML VIAL SQ SCH ×2 (09:40→21:36)
[2018-10-14] MEDS: ASPIRIN COATED 81 MG TABLET.EC PO SCH (09:40)
[2018-10-14] MEDS: TOLTERODINE TARTRATE LA 4 MG CAP.SR.24H (FP) PO SCH (09:40)
--- NOTE | 2018-10-14 11:51 | PN ---
Progress Note (short form) - Note Progress Note: s: no cp sob palps dizzy o: Vital Signs Period Temp Pulse Resp BP Sys/Gonzalez Pulse Ox Last 24 Hr 98.3 F-98.9 F 69-83 20-21 162-174/76-91 100 Constitutional: Yes: No Distress, Calm Eyes: Yes: Conjunctiva Clear, EOM Intact HENT: Yes: Atraumatic, Normocephalic Neck: Yes: Supple, Trachea Midline Respiratory: Yes: Regular, CTA Bilaterally Gastrointestinal: Yes: Normal Bowel Sounds, Soft Cardiovascular: Yes: Regular Rate and Rhythm JVD: No Carotid Bruit: No PMI: Non-Displaced Heart Sounds: Yes: S1, S2 Extremities: No: Cold Edema: No Integumentary: No: Jaundice Neurological: Yes: Alert, Oriented Psychiatric: No: Agitated Current Medications Generic Name Dose Route Start Last Admin Trade Name Freq PRN Reason Stop Dose Admin Acetaminophen 650 mg 10/12/18 18:44 10/12/18 21:56 Tylenol - PO 650 mg Q6H PRN Administration FEVER Aspirin 81 mg 10/12/18 19:45 10/14/18 09:40 Ecotrin - PO 81 mg DAILY CORI Administration Heparin Sodium (Porcine) 5,000 unit 10/13/18 22:00 10/14/18 09:40 Heparin - SQ 5,000 unit BID CORI Administration Ceftriaxone Sodium 1 gm/ 50 mls @ 100 mls/hr 10/13/18 10:00 10/14/18 09:38 Dextrose IVPB 100 mls/hr DAILY CORI Administration Protocol Metoprolol Succinate 25 mg 10/13/18 10:00 10/14/18 09:43 Toprol Xl - PO Not Given BID CORI Tolterodine Tartrate 4 mg 10/13/18 10:00 10/14/18 09:40 Detrol La - PO 4 mg DAILY CORI Administration Verapamil HCl 240 mg 10/13/18 10:00 10/14/18 09:43 Verelan Sr Capsule PO Not Given DAILY [facility] Laboratory Last Values WBC 5.7 K/mm3 (4.0-10.0) 10/14/18 05:24 RBC 4.24 M/mm3 (4.00-5.60) 10/14/18 05:24 Hgb 12.9 GM/dL (11.7-16.9) 10/14/18 05:24 Hct 37.8 % (35.4-49) 10/14/18 05:24 MCV 89.2 fl (80-96) 10/14/18 05:24 MCH 30.3 pg (25.7-33.7) 10/14/18 05:24 MCHC 34.0 g/dl (32.0-35.9) 10/14/18 05:24 RDW 13.2 % (11.9-15.9) 10/14/18 05:24 Plt Count 154 K/MM3 (134-434) 10/14/18 05:24 MPV 9.9 fl (7.5-11.1) 10/14/18 05:24 Absolute Neuts (auto) 3.7 K/mm3 (1.5-8.0) 10/14/18 05:24 Neutrophils % 65.2 % (42.8-82.8) 10/14/18 05:24 Lymphocytes % 14.6 % (8-40) D 10/14/18 05:24 Monocytes % 14.5 % (3.8-10.2) H 10/14/18 05:24 Eosinophils % 4.8 % (0-4.5) H D 10/14/18 05:24 Basophils % 0.9 % (0-2.0) 10/14/18 05:24 Nucleated RBC % 0 % (0-0) 10/14/18 05:24 Sodium 144 mmol/L (136-145) 10/14/18 05:24 Potassium 3.4 mmol/L (3.5-5.1) L 10/14/18 05:24 Chloride 108 mmol/L (98-107) H 10/14/18 05:24 Carbon Dioxide 24 mmol/L (21-32) 10/14/18 05:24 Anion Gap 11 MMOL/L (8-16) 10/14/18 05:24 BUN 19.8 mg/dL (7-18) H 10/14/18 05:24 Creatinine 1.1 mg/dL (0.55-1.3) 10/14/18 05:24 Est GFR (CKD-EPI)AfAm 70.08 10/14/18 05:24 Est GFR (CKD-EPI)NonAf 60.46 10/14/18 05:24 Random Glucose 91 mg/dL (74-106) 10/14/18 05:24 Hemoglobin A1c % 5.8 % (4.2-6.3) 10/13/18 06:05 Calcium 7.9 mg/dL (8.5-10.1) L 10/14/18 05:24 Magnesium 2.2 mg/dL (1.8-2.4) 10/14/18 05:24 Total Bilirubin 1.1 mg/dL (0.2-1) H 10/14/18 05:24 AST 24 U/L (15-37) 10/14/18 05:24 ALT 24 U/L (13-61) 10/14/18 05:24 Alkaline Phosphatase 108 U/L (45-117) 10/14/18 05:24 Creatine Kinase 238 U/L (26-308) 10/13/18 06:05 Creatine Kinase Index 0.7 % (0.0-5.0) 10/13/18 06:05 CK-MB (CK-2) 1.9 ng/mL (0.5-3.6) 10/13/18 06:05 Troponin I 0.10 ng/ml (0.00-0.05) H 10/13/18 06:05 Total Protein 5.7 g/dl (6.4-8.2) L 10/14/18 05:24 Albumin 2.5 g/dl (3.4-5.0) L 10/14/18 05:24 Triglycerides 133 mg/dL (0-150) 10/13/18 06:05 Cholesterol 84 mg/dL (50-200) 10/13/18 06:05 Total LDL Cholesterol 45 mg/dL (5-100) 10/13/18 06:05 HDL Cholesterol 22 mg/dL (40-60) L 10/13/18 06:05 Urine Color Dk yellow 10/12/18 12:30 Urine Appearance Cloudy 10/12/18 12:30 Urine pH 5.0 (5.0-8.0) 10/12/18 12:30 Ur Specific [place] 1.018 (1.010-1.035) 10/12/18 12:30 Urine Protein 2+ (NEGATIVE) H 10/12/18 12:30 Urine Glucose (UA) Negative (NEGATIVE) 10/12/18 12:30 Urine Ketones Negative (NEGATIVE) 10/12/18 12:30 Urine Blood 3+ (NEGATIVE) H 10/12/18 12:30 Urine Nitrite Positive (NEGATIVE) H 10/12/18 12:30 Urine Bilirubin 1+ (NEGATIVE) H 10/12/18 12:30 Urine Urobilinogen 1.0 mg/dL (0.2-1.0) 10/12/18 12:30 Ur Leukocyte Esterase 1+ (NEGATIVE) H 10/12/18 12:30 Urine WBC (Auto) 28 /hpf (0-5) 10/12/18 12:30 Urine RBC (Auto) 1 /hpf (0-4) 10/12/18 12:30 Urine Casts (Auto) 33 /lpf (0-8) 10/12/18 12:30 U Pathogenic Cast Auto None seen /lpf (NEGATIVE) 10/12/18 12:30 U Epithel Cells (Auto) 1.6 /HPF (0-5/HPF) 10/12/18 12:30 Urine Bacteria (Auto) 101.6 /hpf (NEGATIVE) 10/12/18 12:30 Assessment/Plan EKG: sinus, first degree AV block, old inferior infarct, lateral TWI similar to prior echo 10/2018: mild lve, mild dec lvef, rv tds, dave, mod ar, mod mr, mild tr, mild as, nl rvsp tele: sinus elevated trop - flat trend, indeterminate range. EKG similar to prior - no chest pain, unlikely ACS, defer anticoagulation - likely demand in setting of UTI UTI, weakness - weakness likely in setting of UTI - on abx per primary HTN - unclear if taking home meds, restarted - monitor BP, may need additional agent
--- NOTE | 2018-10-14 14:17 | PN ---
Progress Note, Physician History of Present Illness: Patient is an 88 year old male with a significant past medical history of hypertension, BPH, rheumatoid arthritis, hypertension and bilateral knee replacements. He presents to the ED with c/o of two days of increases weakness , lethargy and with inability to suddenly ambulate secondary to increased weakness. At baseline, he is able to walk around slowly around his home and has some tremors. He has been unable to bear his weight and feels the weakness primarily in his knees.He denies any pain, numbness, falls, trauma, fevers, chills, sick contacts. In the ED he was noted to have hypertensive urgency, JEANNIE, elevated troponins and also found to have uti. He is being admitted for cardiac workup. - Current Medication List Current Medications: Active Medications Acetaminophen (Tylenol -) 650 mg PO Q6H PRN PRN Reason: FEVER Last Admin: 10/12/18 21:56 Dose: 650 mg Aspirin (Ecotrin -) 81 mg PO DAILY [facility] Last Admin: 10/14/18 09:40 Dose: 81 mg Heparin Sodium (Porcine) (Heparin -) 5,000 unit SQ BID [facility] Last Admin: 10/14/18 09:40 Dose: 5,000 unit Ceftriaxone Sodium 1 gm/ (Dextrose) 50 mls @ 100 mls/hr IVPB DAILY [facility]; Protocol Last Admin: 10/14/18 09:38 Dose: 100 mls/hr Metoprolol Succinate (Toprol Xl -) 25 mg PO BID [facility] Last Admin: 10/14/18 09:43 Dose: Not Given Tolterodine Tartrate (Detrol La -) 4 mg PO DAILY [facility] Last Admin: 10/14/18 09:40 Dose: 4 mg Verapamil HCl (Verelan Sr Capsule) 240 mg PO DAILY [facility] Last Admin: 10/14/18 09:43 Dose: Not Given - Objective Vital Signs: Vital Signs Temperature 98.3 F 10/14/18 06:00 Pulse Rate 71 10/14/18 10:05 Respiratory Rate 20 10/14/18 10:05 Blood Pressure 174/79 H 10/14/18 10:05 O2 Sat by Pulse Oximetry (%) 100 10/13/18 21:00 Constitutional: Yes: No Distress, Calm Eyes: Yes: WNL HENT: Yes: Atraumatic Neck: Yes: Supple Cardiovascular: Yes: Regular Rate and Rhythm Respiratory: Yes: Regular Labs: CBC, BMP 10/14/18 05:24 10/14/18 05:24 Problem List - Problems (1) Hypertensive urgency Assessment/Plan: on verapramil 240mg. unclear if patient is complaint with cardiac medications. add metoprolol bid as BP remains elevated. will give one dose of norvasc 5 lipid panel reviewed Hmga1c, not diabetic. Code(s): I16.0 - HYPERTENSIVE URGENCY (2) Weakness Assessment/Plan: will initiate physical therapy history of bilateral knee repair 10years ago. Code(s): R53.1 - WEAKNESS (3) Elevated troponin Assessment/Plan: trops elevated, ekg shows nsr 78, 1st degree av block, pvcs lad, lvh and abnormal wave progression echo noted. per cardiology, not likely ACS no need to further anticoagulate with lovenox Code(s): R74.8 - ABNORMAL LEVELS OF OTHER SERUM ENZYMES (4) ACS (acute coronary syndrome) Code(s): I24.9 - ACUTE ISCHEMIC HEART DISEASE, UNSPECIFIED (5) Urinary tract infection Assessment/Plan: given keflex in the Ed. will start on ceftriaxone, pending urine culture Code(s): N39.0 - URINARY TRACT INFECTION, SITE NOT SPECIFIED (6) Prophylactic measure Assessment/Plan: fen gentle hydration monitor electrolytes low salt diet prophy SCDs Code(s): Z29.9 - ENCOUNTER FOR PROPHYLACTIC MEASURES, UNSPECIFIED Visit type - Emergency Visit Emergency Visit: Yes ED Registration Date: 10/12/18 Care time: The patient presented to the Emergency Department on the above date and was hospitalized for further evaluation of their emergent condition. - New Patient This patient is new to me today: No - Critical Care Critical Care patient: No - Discharge Referral Referred to [facility] Med P.C.: No
[2018-10-14] MEDS ORDERED: amLODIPine BESYLATE 5 MG TABLET (FP) PO ONE (19:00)
[2018-10-14] MEDS ORDERED: hydrALAZINE HCL 10 MG TABLET PO ONE (23:50)
--- NOTE | 2018-10-15 10:15 | PN ---
Progress Note, Physician Chief Complaint: no chest pain or SOB TELE: NSR, APCs some blocked History of Present Illness: BP remains elevated He is on Norvasc and Verapamil - Current Medication List Current Medications: Active Medications Acetaminophen (Tylenol -) 650 mg PO Q6H PRN PRN Reason: FEVER Last Admin: 10/12/18 21:56 Dose: 650 mg Amlodipine Besylate (Norvasc -) 10 mg PO DAILY [facility] Aspirin (Ecotrin -) 81 mg PO DAILY [facility] Last Admin: 10/14/18 09:40 Dose: 81 mg Heparin Sodium (Porcine) (Heparin -) 5,000 unit SQ BID [facility] Last Admin: 10/14/18 21:36 Dose: 5,000 unit Ceftriaxone Sodium 1 gm/ (Dextrose) 50 mls @ 100 mls/hr IVPB DAILY [facility]; Protocol Last Admin: 10/14/18 09:38 Dose: 100 mls/hr Metoprolol Succinate (Toprol Xl -) 25 mg PO BID [facility] Last Admin: 10/14/18 21:36 Dose: 25 mg Tolterodine Tartrate (Detrol La -) 4 mg PO DAILY [facility] Last Admin: 10/14/18 09:40 Dose: 4 mg Verapamil HCl (Verelan Sr Capsule) 240 mg PO DAILY [facility] Last Admin: 10/14/18 09:43 Dose: Not Given - Objective Vital Signs: Vital Signs Temperature 98.1 F 10/15/18 09:00 Pulse Rate 65 10/15/18 09:00 Respiratory Rate 20 10/15/18 09:00 Blood Pressure 192/77 H 10/15/18 09:00 O2 Sat by Pulse Oximetry (%) 97 10/15/18 09:00 Constitutional: Yes: No Distress Eyes: Yes: Conjunctiva Clear Cardiovascular: Yes: Regular Rate and Rhythm Respiratory: Yes: CTA Bilaterally Gastrointestinal: Yes: Soft (NT) Edema: No Neurological: Yes: Alert, Oriented Labs: CBC, BMP 10/14/18 05:24 10/14/18 05:24 - ....Imaging EKG: Image Reviewed Assessment/Plan Assessment/Plan EKG: sinus, first degree AV block, old inferior infarct, lateral TWI similar to prior echo 10/2018: mild lve, mild dec lvef, rv tds, dave, mod ar, mod mr, mild tr, mild as, nl rvsp tele: sinus elevated trop - flat trend, indeterminate range. EKG similar to prior - no chest pain, unlikely ACS, defer anticoagulation - likely demand in setting of UTI UTI, weakness - weakness likely in setting of UTI - on abx per primary HTN remains above goal, creat now normal - He is on Verapamil and Norvasc. Would discontinue Verapamil and continue Norvasc. -Can add low dose ARB now that renal function has normalized and aim for target BP < 150/90 in this age group
[2018-10-15] MEDS ORDERED: PT OWN MED DRAWER 7, Y5N ONE (10:23)
[2018-10-15] MEDS ORDERED: DEXTROSE 5%-WATER - 50 ML IVPB ONE (10:23)
[2018-10-15] MEDS ORDERED: cefTRIAXone SODIUM 1 GM VIAL ONE (10:23)
[2018-10-15] MEDS: HEPARIN NA (PORCINE) 5,000 UNITS/ML 1ML VIAL SQ SCH ×2 (10:31→22:11)
[2018-10-15] MEDS: amLODIPine BESYLATE 10 MG TABLET (FP) PO SCH (10:32)
[2018-10-15] MEDS: ASPIRIN COATED 81 MG TABLET.EC PO SCH (10:32)
[2018-10-15] MEDS: metoPROLOL SUCCINATE 25 MG TAB.SR.24H (FP) PO SCH ×2 (10:32→22:11)
[2018-10-15] MEDS: CEFTRIAXONE 1 GM in DEXTROSE 5%-WATER - 50 ML IVPB SCH (10:32)
[2018-10-15] MEDS: TOLTERODINE TARTRATE LA 4 MG CAP.SR.24H (FP) PO SCH (10:32)
[2018-10-15] MEDS: LOSARTAN POTASSIUM 50 MG TABLET (FP) PO SCH (11:14)
--- NOTE | 2018-10-15 13:21 | PN ---
Progress Note, Physician History of Present Illness: Patient is an 88 year old male with a significant past medical history of hypertension, BPH, rheumatoid arthritis, hypertension and bilateral knee replacements. He presents to the ED with c/o of two days of increases weakness , lethargy and with inability to suddenly ambulate secondary to increased weakness. At baseline, he is able to walk around slowly around his home and has some tremors. He has been unable to bear his weight and feels the weakness primarily in his knees.He denies any pain, numbness, falls, trauma, fevers, chills, sick contacts. - Current Medication List Current Medications: Active Medications Acetaminophen (Tylenol -) 650 mg PO Q6H PRN PRN Reason: FEVER Last Admin: 10/12/18 21:56 Dose: 650 mg Amlodipine Besylate (Norvasc -) 10 mg PO DAILY [facility] Last Admin: 10/15/18 10:32 Dose: 10 mg Aspirin (Ecotrin -) 81 mg PO DAILY [facility] Last Admin: 10/15/18 10:32 Dose: 81 mg Heparin Sodium (Porcine) (Heparin -) 5,000 unit SQ BID [facility] Last Admin: 10/15/18 10:31 Dose: 5,000 unit Ceftriaxone Sodium 1 gm/ (Dextrose) 50 mls @ 100 mls/hr IVPB DAILY [facility]; Protocol Last Admin: 10/15/18 10:32 Dose: 100 mls/hr Losartan Potassium (Cozaar -) 25 mg PO DAILY [facility] Last Admin: 10/15/18 11:14 Dose: 25 mg Metoprolol Succinate (Toprol Xl -) 25 mg PO BID [facility] Last Admin: 10/15/18 10:32 Dose: 25 mg Tolterodine Tartrate (Detrol La -) 4 mg PO DAILY [facility] Last Admin: 10/15/18 10:32 Dose: 4 mg - Objective Vital Signs: Vital Signs Temperature 98.1 F 10/15/18 09:00 Pulse Rate 65 10/15/18 09:00 Respiratory Rate 20 10/15/18 09:00 Blood Pressure 192/77 H 10/15/18 09:00 O2 Sat by Pulse Oximetry (%) 97 10/15/18 09:00 Constitutional: Yes: Well Nourished, No Distress HENT: Yes: Atraumatic Neck: Yes: Supple Cardiovascular: Yes: Regular Rate and Rhythm Respiratory: Yes: Regular Labs: CBC, BMP 10/14/18 05:24 10/14/18 05:24 Problem List - Problems (1) Hypertensive urgency Assessment/Plan: medications adjusted for hypertensive urgency. d/c verapramil now on norvasc 10, metoprolol xl 25 bid, losartan 25 bp is improving. Code(s): I16.0 - HYPERTENSIVE URGENCY (2) Weakness Assessment/Plan: will initiate physical therapy history of bilateral knee repair 10years ago. ambulation improving with physical therapy Code(s): R53.1 - WEAKNESS (3) Elevated troponin Assessment/Plan: trops elevated, ekg shows nsr 78, 1st degree av block, pvcs lad, lvh and abnormal wave progression echo noted. per cardiology, not likely ACS no need to further anticoagulate with lovenox Code(s): R74.8 - ABNORMAL LEVELS OF OTHER SERUM ENZYMES (4) ACS (acute coronary syndrome) Code(s): I24.9 - ACUTE ISCHEMIC HEART DISEASE, UNSPECIFIED (5) Urinary tract infection Assessment/Plan: urine culture negative, will stop antibiotics Code(s): N39.0 - URINARY TRACT INFECTION, SITE NOT SPECIFIED (6) Prophylactic measure Assessment/Plan: fen monitor electrolytes low salt diet prophy SCDs Code(s): Z29.9 - ENCOUNTER FOR PROPHYLACTIC MEASURES, UNSPECIFIED Visit type - Emergency Visit Emergency Visit: Yes ED Registration Date: 10/12/18 Care time: The patient presented to the Emergency Department on the above date and was hospitalized for further evaluation of their emergent condition. - New Patient This patient is new to me today: No - Critical Care Critical Care patient: No - Discharge Referral Referred to [facility] Med P.C.: No
[2018-10-15 14:59] LABS: ALBUMIN 2.8 g/dl (3.4-5.0); BILIRUBIN,TOTAL 0.7 mg/dL (0.2-1); BLOOD UREA NITROGEN 21.7 mg/dL (7-18); CALCIUM 8.5 mg/dL (8.5-10.1); CREATININE 1.1 mg/dL (0.55-1.3); POTASSIUM 3.9 mmol/L (3.5-5.1); TOT PROT 6.2 g/dl (6.4-8.2)
[2018-10-16 07:13] LABS: EOS % 4.9 % (0-4.5); HEMATOCRIT 39.4 % (35.4-49); HEMOGLOBIN 13.5 GM/dL (11.7-16.9); MCH 30.6 pg (25.7-33.7); MCHC 34.3 g/dl (32.0-35.9); MEAN CELL VOLUME 89.3 fl (80-96); MEAN PLT VOLUME 10.2 fl (7.5-11.1); MONO % 9.4 % (3.8-10.2); NEUT % 65.7 % (42.8-82.8); PLATELET COUNT 224 K/MM3 (134-434); RBC 4.41 M/mm3 (4.00-5.60); WHITE BLOOD COUNT 6.7 K/mm3 (4.0-10.0)
[2018-10-16 07:30] LABS: BLOOD UREA NITROGEN 22.8 mg/dL (7-18); CALCIUM 8.2 mg/dL (8.5-10.1); MAGNESIUM 2.2 mg/dL (1.8-2.4); POTASSIUM 4.1 mmol/L (3.5-5.1)
[2018-10-16] MEDS ORDERED: cefTRIAXone SODIUM 1 GM VIAL ONE (09:47)
[2018-10-16] MEDS ORDERED: DEXTROSE 5%-WATER - 50 ML IVPB ONE (09:47)
[2018-10-16] MEDS ORDERED: PT OWN MED DRAWER 7, Y5N ONE ×2 (09:47→10:09)
[2018-10-16] MEDS: ASPIRIN COATED 81 MG TABLET.EC PO SCH (09:51)
[2018-10-16] MEDS: CEFTRIAXONE 1 GM in DEXTROSE 5%-WATER - 50 ML IVPB SCH (09:51)
[2018-10-16] MEDS: TOLTERODINE TARTRATE LA 4 MG CAP.SR.24H (FP) PO SCH (09:51)
[2018-10-16] MEDS: LOSARTAN POTASSIUM 50 MG TABLET (FP) PO SCH (09:51)
[2018-10-16] MEDS: amLODIPine BESYLATE 10 MG TABLET (FP) PO SCH (09:51)
[2018-10-16] MEDS: metoPROLOL SUCCINATE 25 MG TAB.SR.24H (FP) PO SCH ×2 (09:52→21:58)
[2018-10-16] MEDS: HEPARIN NA (PORCINE) 5,000 UNITS/ML 1ML VIAL SQ SCH ×2 (09:54→21:57)
--- NOTE | 2018-10-16 10:18 | PN ---
Progress Note, Physician Chief Complaint: uti History of Present Illness: no cp, sob, palps, syncope - Current Medication List Current Medications: Active Medications Acetaminophen (Tylenol -) 650 mg PO Q6H PRN PRN Reason: FEVER Last Admin: 10/12/18 21:56 Dose: 650 mg Amlodipine Besylate (Norvasc -) 10 mg PO DAILY [facility] Last Admin: 10/16/18 09:51 Dose: 10 mg Aspirin (Ecotrin -) 81 mg PO DAILY [facility] Last Admin: 10/16/18 09:51 Dose: 81 mg Heparin Sodium (Porcine) (Heparin -) 5,000 unit SQ BID [facility] Last Admin: 10/16/18 09:54 Dose: 5,000 unit Ceftriaxone Sodium 1 gm/ (Dextrose) 50 mls @ 100 mls/hr IVPB DAILY [facility]; Protocol Last Admin: 10/16/18 09:51 Dose: 100 mls/hr Losartan Potassium (Cozaar -) 25 mg PO DAILY [facility] Last Admin: 10/16/18 09:51 Dose: 25 mg Metoprolol Succinate (Toprol Xl -) 25 mg PO BID [facility] Last Admin: 10/16/18 09:52 Dose: 25 mg Tolterodine Tartrate (Detrol La -) 4 mg PO DAILY [facility] Last Admin: 10/16/18 09:51 Dose: 4 mg - Objective Vital Signs: Vital Signs Temperature 98.4 F 10/16/18 02:09 Pulse Rate 69 10/16/18 06:00 Respiratory Rate 18 10/16/18 06:00 Blood Pressure 163/94 10/16/18 06:00 O2 Sat by Pulse Oximetry (%) 95 10/15/18 21:00 Constitutional: Yes: Well Nourished, No Distress, Calm Cardiovascular: Yes: Regular Rate and Rhythm, S1, S2. No: Gallop, Murmur Respiratory: Yes: Regular, CTA Bilaterally. No: Accessory Muscle Use Extremities: No: Cold Edema: No Neurological: Yes: Alert. No: Seizure Psychiatric: No: Agitated Labs: CBC, BMP 10/16/18 05:35 10/16/18 05:35 Assessment/Plan EKG: sinus, first degree AV block, old inferior infarct, lateral TWI similar to prior echo 10/2018: mild lve, mild dec lvef, rv tds, dave, mod ar, mod mr, mild tr, mild as, nl rvsp tele: sinus elevated trop - flat trend, indeterminate range. EKG similar to prior - no chest pain, unlikely ACS, defer anticoagulation - likely demand in setting of UTI UTI, weakness - weakness likely in setting of UTI - on abx per primary HTN remains above goal, creat now normal - He is on metoprolol and amlodipine here. - added low dose ARB 10/16 now that renal function has normalized, aim for target BP < 150/90 in this age group - observe bp trend D/C TELE
--- NOTE | 2018-10-16 18:04 | PN ---
Progress Note, Physician History of Present Illness: Patient is an 88 year old male with a significant past medical history of hypertension, BPH, rheumatoid arthritis, hypertension and bilateral knee replacements. He presents to the ED with c/o of two days of increases weakness , lethargy and with inability to suddenly ambulate secondary to increased weakness. At baseline, he is able to walk around slowly around his home and has some tremors. He has been unable to bear his weight and feels the weakness primarily in his knees.He denies any pain, numbness, falls, trauma, fevers, chills, sick contacts. - Current Medication List Current Medications: Active Medications Acetaminophen (Tylenol -) 650 mg PO Q6H PRN PRN Reason: FEVER Last Admin: 10/12/18 21:56 Dose: 650 mg Amlodipine Besylate (Norvasc -) 10 mg PO DAILY [facility] Last Admin: 10/16/18 09:51 Dose: 10 mg Aspirin (Ecotrin -) 81 mg PO DAILY [facility] Last Admin: 10/16/18 09:51 Dose: 81 mg Heparin Sodium (Porcine) (Heparin -) 5,000 unit SQ BID [facility] Last Admin: 10/16/18 09:54 Dose: 5,000 unit Ceftriaxone Sodium 1 gm/ (Dextrose) 50 mls @ 100 mls/hr IVPB DAILY [facility]; Protocol Last Admin: 10/16/18 09:51 Dose: 100 mls/hr Losartan Potassium (Cozaar -) 25 mg PO DAILY [facility] Last Admin: 10/16/18 09:51 Dose: 25 mg Metoprolol Succinate (Toprol Xl -) 25 mg PO BID [facility] Last Admin: 10/16/18 09:52 Dose: 25 mg Tolterodine Tartrate (Detrol La -) 4 mg PO DAILY [facility] Last Admin: 10/16/18 09:51 Dose: 4 mg - Objective Vital Signs: Vital Signs Temperature 98.0 F 10/16/18 14:00 Pulse Rate 68 10/16/18 14:00 Respiratory Rate 20 10/16/18 14:00 Blood Pressure 170/81 10/16/18 14:00 O2 Sat by Pulse Oximetry (%) 96 10/16/18 09:00 Constitutional: Yes: Well Nourished, No Distress HENT: Yes: Atraumatic Neck: Yes: Trachea Midline Cardiovascular: Yes: Regular Rate and Rhythm Respiratory: Yes: CTA Bilaterally Gastrointestinal: Yes: Normal Bowel Sounds, Abdomen, Obese Labs: CBC, BMP 10/16/18 05:35 10/16/18 05:35 Problem List - Problems (1) Hypertensive urgency Assessment/Plan: medications adjusted for hypertensive urgency. d/c verapramil now on norvasc 10, metoprolol xl 25 bid, losartan 25 bp is better controlled. Code(s): I16.0 - HYPERTENSIVE URGENCY (2) Weakness Assessment/Plan: ambulating 100 feet with PT. Code(s): R53.1 - WEAKNESS (3) Elevated troponin Assessment/Plan: trops elevated, ekg shows nsr 78, 1st degree av block, pvcs lad, lvh and abnormal wave progression echo noted. per cardiology, not likely ACS no need to further anticoagulate with lovenox Code(s): R74.8 - ABNORMAL LEVELS OF OTHER SERUM ENZYMES (4) ACS (acute coronary syndrome) Code(s): I24.9 - ACUTE ISCHEMIC HEART DISEASE, UNSPECIFIED (5) Urinary tract infection Assessment/Plan: urine culture negative, will stop antibiotics Code(s): N39.0 - URINARY TRACT INFECTION, SITE NOT SPECIFIED (6) Prophylactic measure Assessment/Plan: fen monitor electrolytes low salt diet prophy SCDs Code(s): Z29.9 - ENCOUNTER FOR PROPHYLACTIC MEASURES, UNSPECIFIED Visit type - Emergency Visit Emergency Visit: Yes ED Registration Date: 10/12/18 Care time: The patient presented to the Emergency Department on the above date and was hospitalized for further evaluation of their emergent condition. - New Patient This patient is new to me today: No - Critical Care Critical Care patient: No - Discharge Referral Referred to [facility] Med P.C.: No
[2018-10-17 07:19] LABS: ALBUMIN 2.8 g/dl (3.4-5.0); BILIRUBIN,TOTAL 0.9 mg/dL (0.2-1); BLOOD UREA NITROGEN 22.8 mg/dL (7-18); CALCIUM 8.1 mg/dL (8.5-10.1); POTASSIUM 3.9 mmol/L (3.5-5.1)
[2018-10-17 07:29] LABS: BASO % 1.4 % (0-2.0); EOS % 6.2 % (0-4.5); HEMATOCRIT 40.5 % (35.4-49); HEMOGLOBIN 13.7 GM/dL (11.7-16.9); LYMPH % 18.7 % (8-40); MCH 30.5 pg (25.7-33.7); MCHC 33.7 g/dl (32.0-35.9); MEAN CELL VOLUME 90.5 fl (80-96); MEAN PLT VOLUME 9.9 fl (7.5-11.1); MONO % 9.5 % (3.8-10.2); NEUT % 64.2 % (42.8-82.8); PLATELET COUNT 245 K/MM3 (134-434); RBC 4.48 M/mm3 (4.00-5.60); RDW 13.2 % (11.9-15.9); WHITE BLOOD COUNT 7.3 K/mm3 (4.0-10.0)
[2018-10-17] MEDS ORDERED: PT OWN MED DRAWER 7, Y5N ONE (10:00)
[2018-10-17] MEDS: metoPROLOL SUCCINATE 25 MG TAB.SR.24H (FP) PO SCH ×2 (10:03→22:11)
[2018-10-17] MEDS: amLODIPine BESYLATE 10 MG TABLET (FP) PO SCH (10:03)
[2018-10-17] MEDS: ASPIRIN COATED 81 MG TABLET.EC PO SCH (10:03)
[2018-10-17] MEDS: LOSARTAN POTASSIUM 50 MG TABLET (FP) PO SCH (10:03)
[2018-10-17] MEDS: TOLTERODINE TARTRATE LA 4 MG CAP.SR.24H (FP) PO SCH (10:24)
[2018-10-17] MEDS: HEPARIN NA (PORCINE) 5,000 UNITS/ML 1ML VIAL SQ SCH ×2 (10:24→22:10)
--- NOTE | 2018-10-17 10:27 | PN ---
Progress Note, Physician Chief Complaint: weakness History of Present Illness: sleepy, wants to rest. denies cp, sob, swelling, syncope - Current Medication List Current Medications: Active Medications Acetaminophen (Tylenol -) 650 mg PO Q6H PRN PRN Reason: FEVER Last Admin: 10/12/18 21:56 Dose: 650 mg Amlodipine Besylate (Norvasc -) 10 mg PO DAILY [facility] Last Admin: 10/17/18 10:03 Dose: 10 mg Aspirin (Ecotrin -) 81 mg PO DAILY [facility] Last Admin: 10/17/18 10:03 Dose: 81 mg Heparin Sodium (Porcine) (Heparin -) 5,000 unit SQ BID [facility] Last Admin: 10/17/18 10:24 Dose: 5,000 unit Losartan Potassium (Cozaar -) 25 mg PO DAILY [facility] Last Admin: 10/17/18 10:03 Dose: 25 mg Metoprolol Succinate (Toprol Xl -) 25 mg PO BID [facility] Last Admin: 10/17/18 10:03 Dose: 25 mg Tolterodine Tartrate (Detrol La -) 4 mg PO DAILY [facility] Last Admin: 10/17/18 10:24 Dose: 4 mg - Objective Vital Signs: Vital Signs Temperature 98 F 10/17/18 06:00 Pulse Rate 64 10/17/18 06:00 Respiratory Rate 18 10/17/18 06:00 Blood Pressure 197/74 H 10/17/18 06:00 O2 Sat by Pulse Oximetry (%) 99 10/16/18 21:00 Constitutional: Yes: Well Nourished, No Distress, Calm Cardiovascular: Yes: Regular Rate and Rhythm, S1, S2. No: Gallop, Murmur Respiratory: Yes: Regular, CTA Bilaterally (not taking deep breaths). No: Accessory Muscle Use Extremities: No: Cold Edema: No Neurological: Yes: Alert. No: Seizure Psychiatric: No: Agitated Labs: CBC, BMP 10/17/18 05:15 10/17/18 05:15 Assessment/Plan EKG: sinus, first degree AV block, old inferior infarct, lateral TWI similar to prior echo 10/2018: mild lve, mild dec lvef, rv tds, dave, mod ar, mod mr, mild tr, mild as, nl rvsp elevated trop - flat trend, indeterminate range. EKG similar to prior - no chest pain, unlikely ACS - likely demand in setting of UTI UTI, weakness - weakness likely in setting of UTI - on abx per primary HTN - bp not controlled - He is on metoprolol and amlodipine here, losartan 25 added once JEANNIE resolved. - change ARB to valsaran 160 D/C TELE
[2018-10-17] MEDS: VALSARTAN 160 MG TABLET (UD) PO SCH (11:53)
--- NOTE | 2018-10-17 20:44 | PN ---
Progress Note, Physician History of Present Illness: Patient is an 88 year old male with a significant past medical history of hypertension, BPH, rheumatoid arthritis, hypertension and bilateral knee replacements. He presents to the ED with c/o of two days of increases weakness , lethargy and with inability to suddenly ambulate secondary to increased weakness. At baseline, he is able to walk around slowly around his home and has some tremors. He has been unable to bear his weight and feels the weakness primarily in his knees.He denies any pain, numbness, falls, trauma, fevers, chills, sick contacts. - Current Medication List Current Medications: Active Medications Acetaminophen (Tylenol -) 650 mg PO Q6H PRN PRN Reason: FEVER Last Admin: 10/12/18 21:56 Dose: 650 mg Amlodipine Besylate (Norvasc -) 10 mg PO DAILY [facility] Last Admin: 10/17/18 10:03 Dose: 10 mg Aspirin (Ecotrin -) 81 mg PO DAILY [facility] Last Admin: 10/17/18 10:03 Dose: 81 mg Heparin Sodium (Porcine) (Heparin -) 5,000 unit SQ BID [facility] Last Admin: 10/17/18 10:24 Dose: 5,000 unit Metoprolol Succinate (Toprol Xl -) 25 mg PO BID [facility] Last Admin: 10/17/18 10:03 Dose: 25 mg Tolterodine Tartrate (Detrol La -) 4 mg PO DAILY [facility] Last Admin: 10/17/18 10:24 Dose: 4 mg Valsartan (Diovan -) 160 mg PO DAILY [facility] Last Admin: 10/17/18 11:53 Dose: 160 mg - Objective Vital Signs: Vital Signs Temperature 98.0 F 10/17/18 18:00 Pulse Rate 72 10/17/18 18:00 Respiratory Rate 18 10/17/18 18:00 Blood Pressure 158/67 10/17/18 18:00 O2 Sat by Pulse Oximetry (%) 99 10/17/18 09:00 Constitutional: Yes: Well Nourished, No Distress Eyes: Yes: WNL HENT: Yes: Atraumatic Neck: Yes: Supple Cardiovascular: Yes: Regular Rate and Rhythm Respiratory: Yes: Regular Gastrointestinal: Yes: Normal Bowel Sounds, Soft Musculoskeletal: Yes: Muscle Pain, Muscle Weakness Edema: No Peripheral Pulses WNL: No Integumentary: Yes: WNL Neurological: Yes: Alert, Oriented Psychiatric: Yes: Alert, Oriented Labs: CBC, BMP 10/17/18 05:15 10/17/18 05:15 Problem List - Problems (1) Hypertensive urgency Assessment/Plan: medications adjusted for hypertensive urgency. - diovan 160mg daily - norvasc 10 mg daily - metoprol 25 mg bid Code(s): I16.0 - HYPERTENSIVE URGENCY (2) Weakness Assessment/Plan: ambulating 100 feet with PT. Code(s): R53.1 - WEAKNESS (3) Elevated troponin Assessment/Plan: trops elevated, ekg shows nsr 78, 1st degree av block, pvcs lad, lvh and abnormal wave progression echo noted. per cardiology, not likely ACS no need to further anticoagulate with lovenox Code(s): R74.8 - ABNORMAL LEVELS OF OTHER SERUM ENZYMES (4) ACS (acute coronary syndrome) Code(s): I24.9 - ACUTE ISCHEMIC HEART DISEASE, UNSPECIFIED (5) Urinary tract infection Assessment/Plan: urine culture negative, stop antibiotics Code(s): N39.0 - URINARY TRACT INFECTION, SITE NOT SPECIFIED (6) Prophylactic measure Assessment/Plan: fen monitor electrolytes low salt diet prophy SCDs Code(s): Z29.9 - ENCOUNTER FOR PROPHYLACTIC MEASURES, UNSPECIFIED Visit type - Emergency Visit Emergency Visit: Yes ED Registration Date: 10/12/18 Care time: The patient presented to the Emergency Department on the above date and was hospitalized for further evaluation of their emergent condition. - New Patient This patient is new to me today: No - Critical Care Critical Care patient: No - Discharge Referral Referred to [facility] Med P.C.: No
[2018-10-18 06:50] LABS: BASO % 1.3 % (0-2.0); EOS % 6.3 % (0-4.5); HEMATOCRIT 40.5 % (35.4-49); HEMOGLOBIN 13.6 GM/dL (11.7-16.9); LYMPH % 19.4 % (8-40); MCH 30.3 pg (25.7-33.7); MCHC 33.6 g/dl (32.0-35.9); MEAN CELL VOLUME 90.2 fl (80-96); MEAN PLT VOLUME 9.4 fl (7.5-11.1); MONO % 8.7 % (3.8-10.2); NEUT % 64.3 % (42.8-82.8); PLATELET COUNT 296 K/MM3 (134-434); RBC 4.49 M/mm3 (4.00-5.60); RDW 13.1 % (11.9-15.9); WHITE BLOOD COUNT 8.4 K/mm3 (4.0-10.0)
[2018-10-18 06:57] LABS: ALBUMIN 2.8 g/dl (3.4-5.0); BILIRUBIN,TOTAL 0.8 mg/dL (0.2-1); BLOOD UREA NITROGEN 21.9 mg/dL (7-18); CALCIUM 8.2 mg/dL (8.5-10.1); CREATININE 1.1 mg/dL (0.55-1.3); MAGNESIUM 2.1 mg/dL (1.8-2.4); POTASSIUM 3.9 mmol/L (3.5-5.1)
[2018-10-18] MEDS ORDERED: PT OWN MED DRAWER 7, Y5N ONE (09:25)
[2018-10-18] MEDS: ASPIRIN COATED 81 MG TABLET.EC PO SCH (09:41)
[2018-10-18] MEDS: VALSARTAN 160 MG TABLET (UD) PO SCH (09:41)
[2018-10-18] MEDS: amLODIPine BESYLATE 10 MG TABLET (FP) PO SCH (09:41)
[2018-10-18] MEDS: metoPROLOL SUCCINATE 25 MG TAB.SR.24H (FP) PO SCH (09:41)
[2018-10-18] MEDS: TOLTERODINE TARTRATE LA 4 MG CAP.SR.24H (FP) PO SCH (09:42)
[2018-10-18] MEDS: HEPARIN NA (PORCINE) 5,000 UNITS/ML 1ML VIAL SQ SCH (09:42)
--- NOTE | 2018-10-18 10:53 | PN ---
Progress Note, Physician Chief Complaint: weakness History of Present Illness: upset that he's still in hospital. cannot tell me name of pmd or bp meds he takes at home. denies cp, sob, palpit, presyncope - Current Medication List Current Medications: Active Medications Acetaminophen (Tylenol -) 650 mg PO Q6H PRN PRN Reason: FEVER Last Admin: 10/12/18 21:56 Dose: 650 mg Amlodipine Besylate (Norvasc -) 10 mg PO DAILY [facility] Last Admin: 10/18/18 09:41 Dose: 10 mg Aspirin (Ecotrin -) 81 mg PO DAILY [facility] Last Admin: 10/18/18 09:41 Dose: 81 mg Heparin Sodium (Porcine) (Heparin -) 5,000 unit SQ BID [facility] Last Admin: 10/18/18 09:42 Dose: 5,000 unit Metoprolol Succinate (Toprol Xl -) 25 mg PO BID [facility] Last Admin: 10/18/18 09:41 Dose: 25 mg Tolterodine Tartrate (Detrol La -) 4 mg PO DAILY [facility] Last Admin: 10/18/18 09:42 Dose: 4 mg Valsartan (Diovan -) 160 mg PO DAILY [facility] Last Admin: 10/18/18 09:41 Dose: 160 mg - Objective Vital Signs: Vital Signs Temperature 98.2 F 10/18/18 06:00 Pulse Rate 62 10/18/18 06:00 Respiratory Rate 20 10/18/18 08:18 Blood Pressure 175/90 H 10/18/18 06:00 O2 Sat by Pulse Oximetry (%) 97 10/18/18 08:18 Constitutional: Yes: Well Nourished, No Distress, Calm Cardiovascular: Yes: Regular Rate and Rhythm, S1, S2. No: Gallop, Murmur Respiratory: Yes: Regular, CTA Bilaterally. No: Accessory Muscle Use Extremities: No: Cold Edema: No Neurological: Yes: Alert. No: Seizure Psychiatric: No: Agitated Labs: CBC, BMP 10/18/18 05:17 10/18/18 05:17 Assessment/Plan EKG: sinus, first degree AV block, old inferior infarct, lateral TWI similar to prior echo 10/2018: mild lve, mild dec lvef, rv tds, dave, mod ar, mod mr, mild tr, mild as, nl rvsp elevated trop - flat trend, indeterminate range. EKG similar to prior - no chest pain, unlikely ACS - likely demand in setting of UTI UTI, weakness - weakness likely in setting of UTI - on abx per primary HTN - bp not controlled - ? only on verapamil at home per admit med list. - trated with metoprolol and amlodipine here. now on valsartan 160 qd as well. - renal fxn remains WNL (initial JEANNIE presumably sec to UTI, given no other interventions done)--start HCTZ 25 - consider incr valsartan next - if bp remains <180/100 today, can f/u further bp mgmt with pmd as outpatient D/C TELE
[2018-10-18] MEDS ORDERED: HYDROCHLOROTHIAZIDE 12.5 MG CAPSULE (FP) PO SCH (11:00)
[2018-10-18 15:39] VITALS: BP 143/80; PULSE 81; TEMP 98.2
--- NOTE | 2018-10-18 16:21 | DS ---
Physical Exam: SUBJECTIVE: Patient seen and examined OBJECTIVE: Vital Signs Period Temp Pulse Resp BP Sys/Gonzalez Pulse Ox Last 24 Hr 98 F-98.6 F 62-81 17-20 143-183/65-90 96-97 PHYSICAL EXAM GENERAL: The patient is awake, alert, and fully oriented, in no acute distress. HEAD: Normal with no signs of trauma. EYES: PERRL, extraocular movements intact, sclera anicteric, conjunctiva clear. ENT: Ears normal, nares patent, oropharynx clear without exudates, moist mucous membranes. NECK: Trachea midline, full range of motion, supple. LUNGS: Breath sounds equal, clear to auscultation bilaterally, no wheezes, no crackles, no accessory muscle use. HEART: Regular rate and rhythm, S1, S2 without murmur, rub or gallop. ABDOMEN: Soft, nontender, nondistended, normoactive bowel sounds, no guarding, no rebound, no hepatosplenomegaly, no masses. EXTREMITIES: 2+ pulses, warm, well-perfused, no edema. NEUROLOGICAL: Cranial nerves II through XII grossly intact. Normal speech, gait not observed. PSYCH: Normal mood, normal affect. SKIN: Warm, dry, normal turgor, no rashes or lesions noted. LABS Laboratory Results - last 24 hr 10/18/18 10/18/18 05:17 05:17 WBC 8.4 RBC 4.49 Hgb 13.6 Hct 40.5 MCV 90.2 MCH 30.3 MCHC 33.6 RDW 13.1 Plt Count 296 D MPV 9.4 Absolute Neuts (auto) 5.4 Neutrophils % 64.3 Lymphocytes % 19.4 Monocytes % 8.7 Eosinophils % 6.3 H Basophils % 1.3 Nucleated RBC % 0 Sodium 142 Potassium 3.9 Chloride 110 H Carbon Dioxide 23 Anion Gap 9 BUN 21.9 H Creatinine 1.1 Est GFR (CKD-EPI)AfAm 70.08 Est GFR (CKD-EPI)NonAf 60.46 Random Glucose 86 Calcium 8.2 L Magnesium 2.1 Total Bilirubin 0.8 AST 58 H ALT 98 H Alkaline Phosphatase 110 Total Protein 6.0 L Albumin 2.8 L HOSPITAL COURSE: Date of Admission:10/12/18 Date of Discharge: 10/18/18 Discharge Summary Reason For Visit: ELEVATED TROPONIN LEVEL Current Active Problems ACS (acute coronary syndrome) (Acute) BPH loc w urin obs/LUTS (Acute) BPH loc w urin obs/LUTS (Acute) Elevated troponin (Acute) Hypertensive urgency (Acute) Leg weakness, bilateral (Acute) Prophylactic measure (Acute) Urinary tract infection (Acute) Weakness (Acute) Condition: Improved - Instructions Diet, Activity, Other Instructions: Mr. Centeno: You were admitted for weakness and found to have an elevated blood pressure. We have adjusted your blood pressure medications as noted below. We have called in your medications to your pharmacy. During your stay you were evaluated by a break and load operator. We have included their information so that you can follow up with them as an outpatient. Follow up: We have we made an appointment for you to see your primary care doctor (Dr. oTrre Thursday, 2:15pm, October 27. This is for a blood pressure check. It is important that you follow up this appointment. Thank you for allowing us to care for you. Referrals: Shay Grullon MD [Primary Care Provider] - (we made an appointment for you to see your primary care doctor. Thursday, 2:15pm, October 27. This is for a blood pressure check. ) Hieu Carballo MD [Staff Physician] - Disposition: HOME - Home Medications Comprehensive Discharge Medication List: Ambulatory Orders Tolterodine Tartrate [Detrol LA] 4 mg PO DAILY #0 cap.er.24h 11/04/12 Amlodipine Besylate [Norvasc -] 10 mg PO DAILY #90 tablet 10/18/18 Aspirin Coated [Ecotrin -] 81 mg PO DAILY #90 tablet.ec 10/18/18 Hydrochlorothiazide [Hctz -] 25 mg PO DAILY #90 tablet 10/18/18 Metoprolol Succinate [Toprol XL -] 25 mg PO BID #90 tab.sr.24h 10/18/18 Valsartan [Diovan] 160 mg PO DAILY #90 tablet 10/18/18 Problem List - Problems (1) Hypertensive urgency Code(s): I16.0 - HYPERTENSIVE URGENCY (2) Weakness Code(s): R53.1 - WEAKNESS (3) Elevated troponin Code(s): R74.8 - ABNORMAL LEVELS OF OTHER SERUM ENZYMES (4) ACS (acute coronary syndrome) Code(s): I24.9 - ACUTE ISCHEMIC HEART DISEASE, UNSPECIFIED (5) Urinary tract infection Code(s): N39.0 - URINARY TRACT INFECTION, SITE NOT SPECIFIED (6) Prophylactic measure Code(s): Z29.9 - ENCOUNTER FOR PROPHYLACTIC MEASURES, UNSPECIFIED - Discharge Referral Referred to [facility] No
[2018-10-19] MEDS ORDERED: HYDROCHLOROTHIAZIDE 25 MG TABLET (FP) PO SCH (10:00)
== END 2018-10-18 17:36 | disposition home or self-care (01) | DRG 305 ==
LOC: JER 09:31 → SUPCPDRO 09:31 → JERBED 14:56 → OBSVTOIN 18:36 → J4W 10-13 00:23
PROVIDERS: ADMIT Internal Medicine; ATTEND Nurse Practitioner Family
DX: I16.0 Hypertensive urgency (principal); N39.0 Urinary tract infection, site not specified; I24.9 Acute ischemic heart disease, unspecified; N17.9 Acute kidney failure, unspecified; N40.1 Benign prostatic hyperplasia with lower urinary tract symptoms; R53.1 Weakness; R74.8 Abnormal levels of other serum enzymes; I44.0 Atrioventricular block, first degree; F17.210 Nicotine dependence, cigarettes, uncomplicated
CPT/HCPCS: 36415; 80048; 80053; 80061; 81003; 82550; 82553; 83036; 83721; 83735; 84484; 85025; 87040; 87086; 90670; 93005; 93010; 93306-TC; 97116-GP; 97161-GP; 99285-25; G0378; J1644; J7030